=== PATIENT | male | born 1950 | race Hispanic/Latino ===

== ENCOUNTER 2020-12-03 10:56 | Inpatient (IN) | payer MEDICARE, MEDICAID ==
[2020-12-03 11:36] LABS: #Eosinphils 0.2 10x3/uL (0.0-0.5); #Neutrophils 8.8 10x3/uL (1.5-8.4); %Basophils 0.3 % (0.0-2.0); %Eosinophils 1.6 % (0.0-6.0); %Monocytes 9.4 % (0.0-10.0); %Neutrophils 81.2 % (40.0-75.0); Hemoglobin 9.7 g/dL (13.5-17.5); Mean Corpuscular HGB CONC 33.1 g/dL (32.0-36.0); Mean Corpuscular Hemoglobin 31.2 pg (27.0-33.0); Mean Corpuscular Volume 94.2 fl (81.2-95.1); Mean Platelet Volume 9.6 fl (7.4-10.4); Platelet Count 170 10x3/uL (150-450); RBC Distribution Width 13.9 % (11.5-14.5); Red Blood Cell (RBC) Count 3.11 10x6/uL (4.32-5.72); White Blood Cell (WBC) Count 10.9 10x3/uL (3.5-10.5)
[2020-12-03 11:56] LABS: ALT (SGPT) 197 U/L (8-55); AST (SGOT) 508 U/L (5-34); Albumin 2.2 g/dL (3.4-4.8); Alkaline Phosphatase 146 U/L (40-110); Anion Gap 11 mmol/L (10-20); BUN (Urea Nitrogen) 10 mg/dL (8.4-25.7); Bilirubin, Total 2.8 mg/dL (0.2-1.2); Calc. Creatinine Clearance 0 mL/min (70-130); Calcium 7.5 mg/dL (7.8-10.44); Carbon Dioxide 23 mmol/L (23-31); Chloride 98 mmol/L (98-107); Globulin 3.7 g/dL (2.4-3.5); Glucose 124 mg/dL (80-115); Lipase 247 U/L (8-78); Potassium 3.7 mmol/L (3.5-5.1); Protein, Total 5.9 g/dL (5.8-8.1); Sodium 128 mmol/L (136-145)
[2020-12-03 12:06] LABS: CK (CPK) 7514 U/L (30-200)
[2020-12-03] MEDS ORDERED: Thiamine HCl 200 MG/2 ML VIAL ONE (12:09)
[2020-12-03] MEDS ORDERED: Lorazepam 2 MG/ML VIAL ONE (12:10)
[2020-12-03 12:14] LABS: D-Dimer Test 8.6 mg/L FEU (0.19-0.50); INR-International Normal Ratio 1.3; PTT 29.9 sec (22.0-33.0); Prothrombin Time 14.1 sec (9.5-12.1)
[2020-12-03 12:23] LABS: CKMB 66.4 ng/mL (0-6.6)
[2020-12-03] MEDS ORDERED: Senokot S 8.6-50 MG TAB PO PRN (14:48)
[2020-12-03] MEDS ORDERED: Acetaminophen 325 MG TAB PO PRN (14:48)
[2020-12-03] MEDS ORDERED: Ondansetron ODT 4 MG TAB PO PRN (14:48)
[2020-12-03] MEDS ORDERED: cefTRIAXone\\ROCEPHIN 2 GM VIAL ONE (15:03)
[2020-12-03 15:41] LABS: Troponin I 0.053 ng/mL (< 0.028)
[2020-12-03 15:41] LABS: Bilirubin Neg (Negative); Blood, Urine 250 (Negative); Clarity Slightly Cloudy (Clear); Glucose, Urine (Dipstick) Normal (Negative); Ketone, Urine 5 mg/dL (Negative); Leukocyte 25 (Negative); Nitrite Negative (Negative); Protein, Urine (Dipstick) 100 mg/dl (Neg-Trace); pH, Urine 6.5 (5.0-9.0)
[2020-12-03 15:58] LABS: Renal Epithelial 0-3 HPF (None Seen); Squamous Epithelial 0-3 HPF (0-3)
[2020-12-03 15:59] LABS: Bacteria/HPF Rare-Few HPF (None Seen); Mucous/LPF Rare LPF (<2+)
[2020-12-03 18:40] LABS: Troponin I 0.056 ng/mL (< 0.028)
[2020-12-03] MEDS: Sodium Chloride 0.9% 1,000 ML IV SCH ×2 (21:58→21:59)
[2020-12-03] MEDS: Famotidine 20 MG TAB PO SCH (21:59)
[2020-12-04] MEDS: Sodium Chloride 0.9% 1,000 ML IV SCH ×4 (03:25→17:31)
[2020-12-04 04:53] LABS: #Basophils 0.1 10x3/uL (0.0-0.2); #Eosinphils 0.2 10x3/uL (0.0-0.5); #Monocytes 1.1 10x3/uL (0.0-1.1); #Neutrophils 9.2 10x3/uL (1.5-8.4); %Basophils 0.5 % (0.0-2.0); %Eosinophils 1.9 % (0.0-6.0); %Lymphocytes 7.1 % (18.0-47.0); %Monocytes 9.3 % (0.0-10.0); %Neutrophils 80.8 % (40.0-75.0); Hemoglobin 8.4 g/dL (13.5-17.5); Mean Corpuscular HGB CONC 33.5 g/dL (32.0-36.0); Mean Corpuscular Hemoglobin 31.2 pg (27.0-33.0); Mean Corpuscular Volume 93.3 fl (81.2-95.1); Mean Platelet Volume 9.8 fl (7.4-10.4); Platelet Count 164 10x3/uL (150-450); RBC Distribution Width 14.2 % (11.5-14.5); Red Blood Cell (RBC) Count 2.69 10x6/uL (4.32-5.72); White Blood Cell (WBC) Count 11.3 10x3/uL (3.5-10.5)
[2020-12-04 05:16] LABS: ALT (SGPT) 203 U/L (8-55); AST (SGOT) 517 U/L (5-34); Albumin 1.9 g/dL (3.4-4.8); Alkaline Phosphatase 128 U/L (40-110); Anion Gap 13 mmol/L (10-20); BUN (Urea Nitrogen) 13 mg/dL (8.4-25.7); Calc. Creatinine Clearance 79 mL/min (70-130); Calcium 7.2 mg/dL (7.8-10.44); Carbon Dioxide 19 mmol/L (23-31); Chloride 105 mmol/L (98-107); Globulin 3.5 g/dL (2.4-3.5); Glucose 85 mg/dL (80-115); Iron 29 ug/dL (65-175); Iron Binding Capacity, Total 111 mcg/dL (261-462); Lipase 173 U/L (8-78); Magnesium 1.5 mg/dL (1.6-2.6); Potassium 3.6 mmol/L (3.5-5.1); Protein, Total 5.4 g/dL (5.8-8.1); Sodium 133 mmol/L (136-145)
[2020-12-04 05:28] LABS: CK (CPK) 7477 U/L (30-200)
[2020-12-04 05:36] LABS: Ferritin 407.79 ng/mL (22-322)
[2020-12-04] MEDS ORDERED: Magnesium Sulfate 3 GM in Sodium Chloride 0.9% 100 ML IVPB SCH (07:30)
[2020-12-04 08:19] LABS: HBSAg Index 0.13 S/CO (0-0.99); Hep B Surf Ag NonReactive S/CO (NonReactive)
[2020-12-04] MEDS ORDERED: Folic Acid 1 MG TAB PO SCH (09:00)
[2020-12-04] MEDS ORDERED: Thiamine 100 MG TAB PO SCH (09:00)
[2020-12-04] MEDS: Multivitamin W/ Minerals 1 TAB PO SCH ×2 (10:18→10:22)
[2020-12-04] MEDS: Famotidine 20 MG TAB PO SCH ×2 (10:21→20:29)
[2020-12-04 12:05] LABS: HBCM Index 0.08 S/CO (0-0.79); Hep A IgM AB Non-Reactive (NonReactive); Hep A IgM S/CO 0.64 S/CO (0-0.79); Hep C IgG Ab Non-Reactive (NonReactive); Hep C Index 0.34 S/CO (0-0.79); Hepatitis B Core IgM Abs Non-Reactive (NonReactive)
[2020-12-04] MEDS: cefTRIAXone\\ROCEPHIN 2 GM in Sodium Chloride 0.9% 100 ML IVPB SCH (15:12)
[2020-12-04] MEDS: Multivitamins, Adult 10 ML, Folic Acid 1 MG, Thiamine HCl 100 MG in Dextrose 5 %-0.45 %... IV SCH (19:01)
[2020-12-05] MEDS: Sodium Chloride 0.9% 1,000 ML IV SCH ×3 (01:23→17:39)
[2020-12-05 05:12] LABS: ALT (SGPT) 231 U/L (8-55); AST (SGOT) 609 U/L (5-34); Alkaline Phosphatase 141 U/L (40-110); Anion Gap 9 mmol/L (10-20); BUN (Urea Nitrogen) 15 mg/dL (8.4-25.7); Bilirubin, Total 1.7 mg/dL (0.2-1.2); Calc. Creatinine Clearance 70 mL/min (70-130); Calcium 7.3 mg/dL (7.8-10.44); Carbon Dioxide 20 mmol/L (23-31); Chloride 104 mmol/L (98-107); Globulin 3.5 g/dL (2.4-3.5); Glucose 157 mg/dL (80-115); Potassium 3.3 mmol/L (3.5-5.1); Protein, Total 5.5 g/dL (5.8-8.1); Sodium 130 mmol/L (136-145)
[2020-12-05 05:33] LABS: CK (CPK) 9166 U/L (30-200)
[2020-12-05] MEDS ORDERED: Sodium Chloride 0.9% 1,000 ML IV SCH (09:20)
[2020-12-05] MEDS ORDERED: Potassium Chloride 20 MEQ TAB PO SCH (09:30)
[2020-12-05] MEDS: Famotidine 20 MG TAB PO SCH ×2 (10:17→20:28)
[2020-12-05 14:36] LABS: Phosphorus 2.4 mg/dL (2.3-4.7); Potassium 3.7 mmol/L (3.5-5.1)
[2020-12-05] MEDS: cefTRIAXone\\ROCEPHIN 2 GM in Sodium Chloride 0.9% 100 ML IVPB SCH (16:35)
[2020-12-05] MEDS: Multivitamins, Adult 10 ML, Folic Acid 1 MG, Thiamine HCl 100 MG in Dextrose 5 %-0.45 %... IV SCH (19:09)
[2020-12-06] MEDS: Sodium Chloride 0.9% 1,000 ML IV SCH ×3 (01:45→21:49)
[2020-12-06 04:06] LABS: #Basophils 0.1 10x3/uL (0.0-0.2); #Eosinphils 0.3 10x3/uL (0.0-0.5); #Monocytes 1.1 10x3/uL (0.0-1.1); %Basophils 0.5 % (0.0-2.0); %Eosinophils 2.8 % (0.0-6.0); %Lymphocytes 9.7 % (18.0-47.0); %Monocytes 10.1 % (0.0-10.0); %Neutrophils 76.4 % (40.0-75.0); Hemoglobin 8.8 g/dL (13.5-17.5); Mean Corpuscular Hemoglobin 31.7 pg (27.0-33.0); Mean Corpuscular Volume 93.2 fl (81.2-95.1); Mean Platelet Volume 9.7 fl (7.4-10.4); Platelet Count 162 10x3/uL (150-450); RBC Distribution Width 14.3 % (11.5-14.5); Red Blood Cell (RBC) Count 2.78 10x6/uL (4.32-5.72); White Blood Cell (WBC) Count 10.5 10x3/uL (3.5-10.5)
[2020-12-06 04:21] LABS: INR-International Normal Ratio 1.3; Prothrombin Time 13.8 sec (9.5-12.1)
[2020-12-06 04:25] LABS: ALT (SGPT) 276 U/L (8-55); AST (SGOT) 707 U/L (5-34); Albumin 1.8 g/dL (3.4-4.8); Alkaline Phosphatase 134 U/L (40-110); Anion Gap 12 mmol/L (10-20); BUN (Urea Nitrogen) 15 mg/dL (8.4-25.7); Bilirubin, Total 1.5 mg/dL (0.2-1.2); CRP (Inflammatory) 10.08 mg/dL (= or < 0.5); Calc. Creatinine Clearance 73 mL/min (70-130); Calcium 7.2 mg/dL (7.8-10.44); Carbon Dioxide 16 mmol/L (23-31); Chloride 110 mmol/L (98-107); Globulin 3.4 g/dL (2.4-3.5); Glucose 144 mg/dL (80-115); Magnesium 1.9 mg/dL (1.6-2.6); Potassium 3.6 mmol/L (3.5-5.1); Protein, Total 5.2 g/dL (5.8-8.1); Sodium 134 mmol/L (136-145); Uric Acid 2.6 mg/dL (3.5-7.2)
[2020-12-06 05:01] LABS: CK (CPK) 11463 U/L (30-200)
[2020-12-06] MEDS ORDERED: hydrALAZINE 20 MG/ML VIAL SLOW IVP PRN (11:36)
[2020-12-06] MEDS: Famotidine 20 MG TAB PO SCH ×2 (12:54→21:50)
[2020-12-06] MEDS: cefTRIAXone\\ROCEPHIN 2 GM in Sodium Chloride 0.9% 100 ML IVPB SCH (14:15)
[2020-12-06 15:13] LABS: ANA Symphony (Qualitative) Negative (Negative); ANA Symphony (Quantitative) 0.2 Ratio (< 0.7 Negative); EliA Vaculitis New Method **** NEW METHOD ****; Mitochondrial Ab 1.6 U/mL (<4 Negative); dsDNA IgG Antibody 8.3 IU/mL (<10 Negative)
[2020-12-06] MEDS: Multivitamins, Adult 10 ML, Folic Acid 1 MG, Thiamine HCl 100 MG in Dextrose 5 %-0.45 %... IV SCH (20:02)
[2020-12-07] MEDS: Lorazepam 2 MG/ML VIAL SLOW IVP PRN (03:49)
[2020-12-07 05:36] LABS: ALT (SGPT) 346 U/L (8-55); AST (SGOT) 911 U/L (5-34); Albumin 1.8 g/dL (3.4-4.8); Alkaline Phosphatase 131 U/L (40-110); Anion Gap 10 mmol/L (10-20); BUN (Urea Nitrogen) 16 mg/dL (8.4-25.7); Bilirubin, Total 1.8 mg/dL (0.2-1.2); Calc. Creatinine Clearance 91 mL/min (70-130); Calcium 7.2 mg/dL (7.8-10.44); Carbon Dioxide 16 mmol/L (23-31); Chloride 110 mmol/L (98-107); Globulin 3.5 g/dL (2.4-3.5); Glucose 136 mg/dL (80-115); Lipase 170 U/L (8-78); Magnesium 1.7 mg/dL (1.6-2.6); Phosphorus 2.6 mg/dL (2.3-4.7); Potassium 3.3 mmol/L (3.5-5.1); Protein, Total 5.3 g/dL (5.8-8.1); Sodium 133 mmol/L (136-145)
[2020-12-07 06:04] LABS: #Basophils 0.1 10x3/uL (0.0-0.2); #Eosinphils 0.3 10x3/uL (0.0-0.5); #Monocytes 1.1 10x3/uL (0.0-1.1); #Neutrophils 9.5 10x3/uL (1.5-8.4); %Basophils 0.5 % (0.0-2.0); %Eosinophils 2.7 % (0.0-6.0); %Lymphocytes 8.1 % (18.0-47.0); %Monocytes 8.8 % (0.0-10.0); %Neutrophils 79.2 % (40.0-75.0); Hemoglobin 8.8 g/dL (13.5-17.5); Mean Corpuscular HGB CONC 34.5 g/dL (32.0-36.0); Mean Corpuscular Hemoglobin 32.2 pg (27.0-33.0); Mean Corpuscular Volume 93.4 fl (81.2-95.1); Platelet Count 156 10x3/uL (150-450); RBC Distribution Width 14.5 % (11.5-14.5); Red Blood Cell (RBC) Count 2.73 10x6/uL (4.32-5.72)
[2020-12-07] MEDS: Sodium Chloride 0.9% 1,000 ML IV SCH ×3 (07:04→17:07)
[2020-12-07] MEDS: Famotidine 20 MG TAB PO SCH ×2 (08:13→20:33)
[2020-12-07 08:46] LABS: Actual Bicarbonate (HCO3a) 19.1 mEq/L (22-28); Base Excess (BEa) -3.8 mEq/L (-2.0 to +3.0); CO2 Tension 27.1 mmHg (35.0-45.0); Calcium, Ionized (arterial) 1.11 mmol/L (1.12-1.30); Carboxyhemoglobin (COHb) 0.3 gm% (0.0-3.0); Hemoglobin (Hb) 9.3 g/dL (14.0-18.0); O2 Tension (PaO2), arterial 76.9 mmHg (> 80.0); Potassium - ABG Lab 3.4 mmol/L (3.70-5.30); Puncture Site LRA; pH, Arterial 7.47 (7.35-7.45)
[2020-12-07 08:49] LABS: ALV-art Gradient 38.955 mmHg (0-20)
[2020-12-07] MEDS ORDERED: Sodium Chloride 0.9% 1,000 ML IV SCH (09:31)
[2020-12-07] MEDS ORDERED: Furosemide 20 MG/2 ML VIAL SLOW IVP SCH ×2 (09:45→21:00)
[2020-12-07] MEDS ORDERED: Potassium Chloride 20 MEQ TAB PO SCH (10:45)
[2020-12-07] MEDS: Potassium Chloride 20 MEQ in Premix Bag 1 BAG IVPB SCH ×2 (10:55→13:09)
[2020-12-07] MEDS: Morphine 2 MG/ML VIAL SLOW IVP PRN ×3 (10:55→20:14)
[2020-12-07] MEDS ORDERED: Albumin 25% 25 GM/100 ML BOT IVPB SCH ×3 (12:00→18:00)
[2020-12-07] MEDS ORDERED: Spironolactone 25 MG TAB PO SCH (13:00)
[2020-12-07] MEDS: Furosemide 20 MG/2 ML VIAL SLOW IVP SCH ×2 (14:24→20:09)
[2020-12-07] MEDS: cefTRIAXone\\ROCEPHIN 2 GM in Sodium Chloride 0.9% 100 ML IVPB SCH (14:24)
[2020-12-07 16:49] LABS: Anion Gap 14 mmol/L (10-20); BUN (Urea Nitrogen) 17 mg/dL (8.4-25.7); Calc. Creatinine Clearance 89 mL/min (70-130); Calcium 7.4 mg/dL (7.8-10.44); Carbon Dioxide 16 mmol/L (23-31); Chloride 112 mmol/L (98-107); Glucose 103 mg/dL (80-115); Potassium 3.9 mmol/L (3.5-5.1); Sodium 138 mmol/L (136-145)
[2020-12-07 17:14] LABS: CK (CPK) 16815 U/L (30-200)
[2020-12-07] MEDS: Albumin 25% 25 GM/100 ML BOT IVPB SCH (17:20)
[2020-12-07] MEDS: Lactated Ringer's 1,000 ML IV SCH (20:25)
[2020-12-07] MEDS ORDERED: Piperacillin/Tazobactam 2.25 GM VIAL ONE (20:50)
[2020-12-07] MEDS ORDERED: Piperacillin/Tazobactam 4.5 GM in Sodium Chloride 0.9% 100 ML IVPB SCH (21:00)
[2020-12-07] MEDS: Piperacillin/Tazobactam 2.25 GM in Sodium Chloride 0.9% 100 ML IVPB SCH ×2 (21:28→22:10)
[2020-12-07] MEDS: Azithromycin 500 MG in Sodium Chloride 0.9% 250 ML 250 ML IVPB SCH (22:55)
[2020-12-07 23:39] LABS: Legionella Urinary Ag Negative (Negative); Strep pneumo Urine Ag NEGATIVE (NEGATIVE)
[2020-12-08] MEDS: Albumin 25% 25 GM/100 ML BOT IVPB SCH ×4 (00:04→23:59)
[2020-12-08] MEDS ORDERED: Piperacillin/Tazobactam 2.25 GM VIAL ONE (02:51)
[2020-12-08] MEDS: Piperacillin/Tazobactam 2.25 GM in Sodium Chloride 0.9% 100 ML IVPB SCH ×2 (03:00→03:06)
[2020-12-08] MEDS: Lactated Ringer's 1,000 ML IV SCH ×3 (03:30→19:48)
[2020-12-08 04:37] LABS: ALT (SGPT) 302 U/L (8-55); AST (SGOT) 738 U/L (5-34); Albumin 2.7 g/dL (3.4-4.8); Alkaline Phosphatase 110 U/L (40-110); Anion Gap 14 mmol/L (10-20); BUN (Urea Nitrogen) 20 mg/dL (8.4-25.7); Bilirubin, Total 2.5 mg/dL (0.2-1.2); Calc. Creatinine Clearance 79 mL/min (70-130); Calcium 7.7 mg/dL (7.8-10.44); Carbon Dioxide 17 mmol/L (23-31); Chloride 112 mmol/L (98-107); Globulin 2.7 g/dL (2.4-3.5); Glucose 85 mg/dL (80-115); Magnesium 1.6 mg/dL (1.6-2.6); Potassium 3.8 mmol/L (3.5-5.1); Protein, Total 5.4 g/dL (5.8-8.1); Sodium 139 mmol/L (136-145)
[2020-12-08 04:47] LABS: Phosphorus 3.4 mg/dL (2.3-4.7)
[2020-12-08 05:06] LABS: CK (CPK) 15499 U/L (30-200)
[2020-12-08] MEDS ORDERED: Spironolactone 25 MG TAB PO SCH (08:00)
[2020-12-08] MEDS: Piperacillin/Tazobactam 3.375 GM in Sodium Chloride 0.9% 100 ML IVPB SCH ×2 (08:36→16:14)
[2020-12-08] MEDS: Furosemide 20 MG/2 ML VIAL SLOW IVP SCH ×3 (08:36→19:48)
[2020-12-08] MEDS: Famotidine/PF 20 mg/2ml Vial SLOW IVP SCH ×2 (08:37→19:48)
[2020-12-08] MEDS: Lorazepam 2 MG/ML VIAL SLOW IVP PRN ×3 (08:50→20:03)
[2020-12-08] MEDS ORDERED: Famotidine/PF 20 mg/2ml Vial IVPB SCH (09:00)
[2020-12-08] MEDS ORDERED: Multivitamins, Adult 10 ML, Folic Acid 1 MG, Thiamine HCl 100 MG in Dextrose 5 %-0.45 %... IV SCH (09:00)
[2020-12-08] MEDS ORDERED: Enoxaparin Sodium 40 MG/0.4 ML SYRINGE SC SCH (10:00)
[2020-12-08] MEDS ORDERED: Sodium Bicarbonate 150 MEQ in Dextrose 5% in Water 1,000 ML IV SCH (16:00)
[2020-12-08 16:23] LABS: ALT (SGPT) 364 U/L (8-55); AST (SGOT) 836 U/L (5-34); Albumin 2.6 g/dL (3.4-4.8); Alkaline Phosphatase 97 U/L (40-110); Anion Gap 12 mmol/L (10-20); BUN (Urea Nitrogen) 20 mg/dL (8.4-25.7); Bilirubin, Total 2.4 mg/dL (0.2-1.2); Calc. Creatinine Clearance 78 mL/min (70-130); Calcium 7.7 mg/dL (7.8-10.44); Carbon Dioxide 19 mmol/L (23-31); Chloride 110 mmol/L (98-107); Globulin 2.6 g/dL (2.4-3.5); Glucose 140 mg/dL (80-115); Protein, Total 5.2 g/dL (5.8-8.1); Sodium 138 mmol/L (136-145)
[2020-12-08] MEDS ORDERED: Magnesium 2 GM/50 ML 2 GM in Premix Bag 1 BAG IVPB SCH (17:30)
[2020-12-08 17:47] LABS: Phosphorus 2.5 mg/dL (2.3-4.7)
[2020-12-08] MEDS: Sodium Bicarbonate 75 MEQ in Dextrose 5% in Water 500 ML IV SCH (18:02)
[2020-12-08] MEDS: Potassium Chloride 20 MEQ in Premix Bag 1 BAG IVPB SCH ×3 (19:48→23:59)
[2020-12-08] MEDS: Azithromycin 500 MG in Sodium Chloride 0.9% 250 ML 250 ML IVPB SCH (21:36)
[2020-12-09] MEDS: Piperacillin/Tazobactam 3.375 GM in Sodium Chloride 0.9% 100 ML IVPB SCH ×3 (01:41→15:03)
[2020-12-09] MEDS: Potassium Chloride 20 MEQ in Premix Bag 1 BAG IVPB SCH ×7 (03:43→22:35)
[2020-12-09 04:41] LABS: ALT (SGPT) 369 U/L (8-55); AST (SGOT) 764 U/L (5-34); Albumin 2.9 g/dL (3.4-4.8); Alkaline Phosphatase 102 U/L (40-110); Anion Gap 11 mmol/L (10-20); BUN (Urea Nitrogen) 18 mg/dL (8.4-25.7); Bilirubin, Total 2.4 mg/dL (0.2-1.2); Calc. Creatinine Clearance 81 mL/min (70-130); Calcium 7.9 mg/dL (7.8-10.44); Carbon Dioxide 23 mmol/L (23-31); Chloride 107 mmol/L (98-107); Globulin 2.4 g/dL (2.4-3.5); Glucose 135 mg/dL (80-115); Potassium 3.2 mmol/L (3.5-5.1); Protein, Total 5.3 g/dL (5.8-8.1); Sodium 138 mmol/L (136-145)
[2020-12-09] MEDS: Lactated Ringer's 1,000 ML IV SCH ×2 (04:52→13:14)
[2020-12-09] MEDS: Albumin 25% 25 GM/100 ML BOT IVPB SCH (04:52)
[2020-12-09] MEDS: Lorazepam 2 MG/ML VIAL SLOW IVP PRN ×2 (04:53→10:12)
[2020-12-09 04:54] LABS: CK (CPK) 12881 U/L (30-200)
[2020-12-09] MEDS ORDERED: Potassium Phosphate 30 MMOL in Sodium Chloride 0.9% 250 ML 250 ML IVPB SCH ×2 (05:30→07:30)
[2020-12-09] MEDS ORDERED: Potassium Chloride 40 MEQ in Premix Bag 1 BAG IVPB SCH (05:30)
[2020-12-09] MEDS: Famotidine/PF 20 mg/2ml Vial SLOW IVP SCH ×2 (08:31→20:39)
[2020-12-09] MEDS: Enoxaparin Sodium 40 MG/0.4 ML SYRINGE SC SCH (08:31)
[2020-12-09] MEDS: Furosemide 20 MG/2 ML VIAL SLOW IVP SCH ×3 (08:32→20:30)
[2020-12-09] MEDS: Sodium Bicarbonate 75 MEQ in Dextrose 5% in Water 500 ML IV SCH (08:50)
[2020-12-09] MEDS ORDERED: Multivitamins, Adult 10 ML, Folic Acid 1 MG, Thiamine HCl 100 MG in Dextrose 5 %-0.45 %... IV SCH (09:00)
[2020-12-09 10:25] LABS: ALV-art Gradient 94.905 mmHg (0-20); Actual Bicarbonate (HCO3a) 17.5 mEq/L (22-28); Base Excess (BEa) -6.2 mEq/L (-2.0 to +3.0); CO2 Tension 28.3 mmHg (35.0-45.0); Calcium, Ionized (arterial) 1.12 mmol/L (1.12-1.30); Carboxyhemoglobin (COHb) 0.3 gm% (0.0-3.0); Hemoglobin (Hb) 8.7 g/dL (14.0-18.0); O2 Tension (PaO2), arterial 126.4 mmHg (> 80.0); Potassium - ABG Lab 3.7 mmol/L (3.70-5.30); pH, Arterial 7.41 (7.35-7.45)
[2020-12-09] MEDS ORDERED: Thiamine HCl 200 MG/2 ML VIAL SLOW IVP SCH (11:30)
[2020-12-09] MEDS ORDERED: Sodium Bicarbonate 150 MEQ, Admixture Fee 1 EACH in Dextrose 5% in Water 1,000 ML IV SCH ×2 (13:30→14:00)
[2020-12-09] MEDS: Azithromycin 500 MG in Sodium Chloride 0.9% 250 ML 250 ML IVPB SCH (22:32)
[2020-12-10] MEDS: Piperacillin/Tazobactam 3.375 GM in Sodium Chloride 0.9% 100 ML IVPB SCH ×3 (00:29→16:40)
[2020-12-10 04:43] LABS: ALT (SGPT) 365 U/L (8-55); AST (SGOT) 657 U/L (5-34); Albumin 2.5 g/dL (3.4-4.8); Alkaline Phosphatase 133 U/L (40-110); Anion Gap 12 mmol/L (10-20); BUN (Urea Nitrogen) 18 mg/dL (8.4-25.7); Calc. Creatinine Clearance 83 mL/min (70-130); Calcium 7.3 mg/dL (7.8-10.44); Carbon Dioxide 29 mmol/L (23-31); Chloride 103 mmol/L (98-107); Globulin 2.5 g/dL (2.4-3.5); Glucose 154 mg/dL (80-115); Potassium 4.3 mmol/L (3.5-5.1); Sodium 140 mmol/L (136-145)
[2020-12-10] MEDS: Lactated Ringer's 1,000 ML IV SCH ×3 (04:57→19:31)
[2020-12-10 05:04] LABS: CK (CPK) 8180 U/L (30-200)
[2020-12-10] MEDS ORDERED: Metolazone 5 MG TAB PER TUBE SCH (07:30)
[2020-12-10] MEDS ORDERED: Spironolactone 25 MG TAB PO SCH (07:30)
[2020-12-10] MEDS ORDERED: Metolazone 2.5 MG TAB PER TUBE SCH (08:15)
[2020-12-10] MEDS ORDERED: Furosemide 40 MG/4 ML VIAL SLOW IVP SCH (08:15)
[2020-12-10] MEDS: Lorazepam 2 MG/ML VIAL SLOW IVP PRN (08:26)
[2020-12-10] MEDS: Albumin 25% 25 GM/100 ML BOT IVPB SCH ×3 (08:36→19:30)
[2020-12-10] MEDS: Enoxaparin Sodium 40 MG/0.4 ML SYRINGE SC SCH (08:44)
[2020-12-10] MEDS: Dextrose 5 %-0.45 % NaCl 1,000 ML ONE ×2 (08:44→08:48)
[2020-12-10] MEDS: Famotidine/PF 20 mg/2ml Vial SLOW IVP SCH ×2 (08:44→19:30)
[2020-12-10] MEDS ORDERED: Multivitamins, Adult 10 ML, Folic Acid 1 MG in Dextrose 5 %-0.45 % NaCl 1,000 ML IV SCH (09:00)
[2020-12-10] MEDS: Morphine 2 MG/ML VIAL SLOW IVP PRN ×3 (10:14→19:44)
[2020-12-10] MEDS ORDERED: chlordiazePOXIDE HCl 25 MG CAP PO SCH (10:30)
[2020-12-10] MEDS ORDERED: Sodium Chloride 0.9% 50 ML ONE (12:32)
[2020-12-10] MEDS: Furosemide 40 MG/4 ML VIAL SLOW IVP SCH ×2 (15:01→21:45)
[2020-12-10] MEDS: chlordiazePOXIDE HCl 25 MG CAP PO SCH ×2 (15:02→19:30)
[2020-12-10] MEDS: Azithromycin 500 MG in Sodium Chloride 0.9% 250 ML 250 ML IVPB SCH (21:46)
[2020-12-11] MEDS: Piperacillin/Tazobactam 3.375 GM in Sodium Chloride 0.9% 100 ML IVPB SCH ×3 (00:18→16:12)
[2020-12-11] MEDS: Morphine 2 MG/ML VIAL SLOW IVP PRN (00:19)
[2020-12-11] MEDS: Albumin 25% 25 GM/100 ML BOT IVPB SCH ×2 (02:36→23:07)
[2020-12-11] MEDS: Lactated Ringer's 1,000 ML IV SCH (04:03)
[2020-12-11] MEDS: Furosemide 40 MG/4 ML VIAL SLOW IVP SCH ×3 (05:02→21:43)
[2020-12-11 07:56] LABS: Hemoglobin 8.2 g/dL (13.5-17.5); Mean Corpuscular HGB CONC 33.6 g/dL (32.0-36.0); Mean Corpuscular Hemoglobin 31.9 pg (27.0-33.0); Mean Corpuscular Volume 94.9 fl (81.2-95.1); Mean Platelet Volume 10.1 fl (7.4-10.4); Platelet Count 132 10x3/uL (150-450); RBC Distribution Width 14.8 % (11.5-14.5); Red Blood Cell (RBC) Count 2.57 10x6/uL (4.32-5.72); White Blood Cell (WBC) Count 11.2 10x3/uL (3.5-10.5)
[2020-12-11 07:57] LABS: ALT (SGPT) 264 U/L (8-55); AST (SGOT) 409 U/L (5-34); Albumin 2.9 g/dL (3.4-4.8); Alkaline Phosphatase 102 U/L (40-110); Anion Gap 15 mmol/L (10-20); BUN (Urea Nitrogen) 21 mg/dL (8.4-25.7); Bilirubin, Total 2.3 mg/dL (0.2-1.2); Calc. Creatinine Clearance 83 mL/min (70-130); Calcium 7.8 mg/dL (7.8-10.44); Carbon Dioxide 31 mmol/L (23-31); Chloride 103 mmol/L (98-107); Glucose 124 mg/dL (80-115); Potassium 3.6 mmol/L (3.5-5.1); Protein, Total 4.9 g/dL (5.8-8.1); Sodium 145 mmol/L (136-145)
[2020-12-11 08:08] LABS: CK (CPK) 4889 U/L (30-200)
[2020-12-11] MEDS: chlordiazePOXIDE HCl 25 MG CAP PO SCH ×3 (08:18→21:43)
[2020-12-11] MEDS: Enoxaparin Sodium 40 MG/0.4 ML SYRINGE SC SCH (08:18)
[2020-12-11] MEDS: Famotidine/PF 20 mg/2ml Vial SLOW IVP SCH ×2 (08:18→21:43)
[2020-12-11] MEDS: Spironolactone 25 MG TAB PO SCH (10:02)
[2020-12-11 18:13] LABS: ALT (SGPT) 285 U/L (8-55); AST (SGOT) 420 U/L (5-34); Albumin 2.8 g/dL (3.4-4.8); Alkaline Phosphatase 107 U/L (40-110); Anion Gap 14 mmol/L (10-20); BUN (Urea Nitrogen) 20 mg/dL (8.4-25.7); Bilirubin, Total 2.6 mg/dL (0.2-1.2); Calc. Creatinine Clearance 84 mL/min (70-130); Calcium 7.8 mg/dL (7.8-10.44); Carbon Dioxide 31 mmol/L (23-31); Chloride 102 mmol/L (98-107); Globulin 2.3 g/dL (2.4-3.5); Glucose 116 mg/dL (80-115); Potassium 3.3 mmol/L (3.5-5.1); Protein, Total 5.1 g/dL (5.8-8.1); Sodium 144 mmol/L (136-145)
[2020-12-11 18:24] LABS: CK (CPK) 4918 U/L (30-200)
[2020-12-11] MEDS: Azithromycin 500 MG in Sodium Chloride 0.9% 250 ML 250 ML IVPB SCH (21:44)
[2020-12-12] MEDS: Piperacillin/Tazobactam 3.375 GM in Sodium Chloride 0.9% 100 ML IVPB SCH ×3 (00:24→16:42)
[2020-12-12 03:41] LABS: Hemoglobin 8.5 g/dL (13.5-17.5); Mean Corpuscular HGB CONC 33.5 g/dL (32.0-36.0); Mean Corpuscular Hemoglobin 31.6 pg (27.0-33.0); Mean Corpuscular Volume 94.4 fl (81.2-95.1); Mean Platelet Volume 10.5 fl (7.4-10.4); Platelet Count 131 10x3/uL (150-450); RBC Distribution Width 15.1 % (11.5-14.5); Red Blood Cell (RBC) Count 2.69 10x6/uL (4.32-5.72)
[2020-12-12 03:55] LABS: ALT (SGPT) 265 U/L (8-55); AST (SGOT) 372 U/L (5-34); Albumin 2.9 g/dL (3.4-4.8); Alkaline Phosphatase 102 U/L (40-110); Anion Gap 14 mmol/L (10-20); BUN (Urea Nitrogen) 22 mg/dL (8.4-25.7); Bilirubin, Total 2.5 mg/dL (0.2-1.2); CK (CPK) 3896 U/L (30-200); Calc. Creatinine Clearance 79 mL/min (70-130); Calcium 8.1 mg/dL (7.8-10.44); Carbon Dioxide 32 mmol/L (23-31); Chloride 102 mmol/L (98-107); Globulin 2.2 g/dL (2.4-3.5); Glucose 169 mg/dL (80-115); Protein, Total 5.1 g/dL (5.8-8.1); Sodium 145 mmol/L (136-145)
[2020-12-12] MEDS: Albumin 25% 25 GM/100 ML BOT IVPB SCH ×3 (05:12→18:21)
[2020-12-12] MEDS: Furosemide 40 MG/4 ML VIAL SLOW IVP SCH ×3 (06:00→21:29)
[2020-12-12] MEDS: Enoxaparin Sodium 40 MG/0.4 ML SYRINGE SC SCH (07:55)
[2020-12-12] MEDS: Famotidine/PF 20 mg/2ml Vial SLOW IVP SCH ×2 (07:55→21:29)
[2020-12-12] MEDS: chlordiazePOXIDE HCl 25 MG CAP PO SCH (07:56)
[2020-12-12] MEDS: Potassium Chloride 20 MEQ TAB PO SCH ×2 (07:56→13:39)
[2020-12-12] MEDS: Spironolactone 25 MG TAB PO SCH (09:10)
[2020-12-12] MEDS ORDERED: chlordiazePOXIDE HCl 25 MG CAP PO PRN (10:07)
[2020-12-12 10:33] LABS: Phosphorus 1.4 mg/dL (2.3-4.7)
[2020-12-12] MEDS: Lactated Ringer's 1,000 ML IV SCH ×2 (14:07→21:29)
[2020-12-12] MEDS ORDERED: Magnesium 2 GM/50 ML 2 GM in Premix Bag 1 BAG IVPB SCH (16:30)
[2020-12-12] MEDS: Azithromycin 500 MG in Sodium Chloride 0.9% 250 ML 250 ML IVPB SCH (21:30)
[2020-12-13] MEDS: Piperacillin/Tazobactam 3.375 GM in Sodium Chloride 0.9% 100 ML IVPB SCH ×3 (00:07→16:17)
[2020-12-13] MEDS: Lactated Ringer's 1,000 ML IV SCH (04:07)
[2020-12-13] MEDS: Acetaminophen 650 MG Suppository PR PRN (04:42)
[2020-12-13 05:44] LABS: Anion Gap 18 mmol/L (10-20); Globulin 2.6 g/dL (2.4-3.5)
[2020-12-13] MEDS ORDERED: Magnesium 2 GM/50 ML 2 GM in Premix Bag 1 BAG IVPB SCH ×3 (05:45→18:00)
[2020-12-13] MEDS: Furosemide 40 MG/4 ML VIAL SLOW IVP SCH (05:51)
[2020-12-13 05:52] LABS: ALT (SGPT) 192 U/L (8-55); AST (SGOT) 224 U/L (5-34); Alkaline Phosphatase 102 U/L (40-110); BUN (Urea Nitrogen) 27 mg/dL (8.4-25.7); CK (CPK) 1598 U/L (30-200); Calc. Creatinine Clearance 62 mL/min (70-130); Calcium 8.3 mg/dL (7.8-10.44); Carbon Dioxide 29 mmol/L (23-31); Chloride 105 mmol/L (98-107); Glucose 156 mg/dL (80-115); Potassium 4.6 mmol/L (3.5-5.1); Protein, Total 5.6 g/dL (5.8-8.1); Sodium 147 mmol/L (136-145)
[2020-12-13 06:08] LABS: Mean Corpuscular HGB CONC 33.5 g/dL (32.0-36.0); Mean Corpuscular Hemoglobin 31.7 pg (27.0-33.0); Mean Corpuscular Volume 94.8 fl (81.2-95.1); Mean Platelet Volume 10.4 fl (7.4-10.4); Platelet Count 127 10x3/uL (150-450); RBC Distribution Width 15.3 % (11.5-14.5); Red Blood Cell (RBC) Count 2.52 10x6/uL (4.32-5.72); White Blood Cell (WBC) Count 10.2 10x3/uL (3.5-10.5)
[2020-12-13] MEDS ORDERED: Potassium Phosphate 30 MMOL in Sodium Chloride 0.9% 250 ML 250 ML IVPB SCH ×2 (06:30→20:00)
[2020-12-13 06:31] LABS: Phosphorus 1.2 mg/dL (2.3-4.7)
[2020-12-13] MEDS: Sodium Chloride 0.45% 1,000 ML IV SCH ×2 (09:23→12:48)
[2020-12-13] MEDS: Enoxaparin Sodium 40 MG/0.4 ML SYRINGE SC SCH (09:33)
[2020-12-13] MEDS: Famotidine/PF 20 mg/2ml Vial SLOW IVP SCH ×2 (09:34→22:01)
[2020-12-13 16:24] LABS: Anion Gap 12 mmol/L (10-20)
[2020-12-13 16:39] LABS: Albumin 2.9 g/dL (3.4-4.8); BUN (Urea Nitrogen) 25 mg/dL (8.4-25.7); BUN/Creatinine Ratio 24.51; CK (CPK) 1405 U/L (30-200); Calc. Creatinine Clearance 73 mL/min (70-130); Calcium 8.3 mg/dL (7.8-10.44); Carbon Dioxide 34 mmol/L (23-31); Chloride 105 mmol/L (98-107); Glucose 150 mg/dL (80-115); Phosphorus 1.5 mg/dL (2.3-4.7); Sodium 148 mmol/L (136-145)
[2020-12-13] MEDS ORDERED: Sodium Chloride 0.9% 250 ML 250 ML ONE (22:04)
[2020-12-14] MEDS: Sodium Chloride 0.45% 1,000 ML IV SCH ×2 (00:20→08:53)
[2020-12-14] MEDS: Piperacillin/Tazobactam 3.375 GM in Sodium Chloride 0.9% 100 ML IVPB SCH ×4 (05:28→23:49)
[2020-12-14 05:35] LABS: Hemoglobin 8.1 g/dL (13.5-17.5); Mean Corpuscular HGB CONC 33.3 g/dL (32.0-36.0); Mean Corpuscular Volume 93.1 fl (81.2-95.1); Mean Platelet Volume 10.5 fl (7.4-10.4); Platelet Count 131 10x3/uL (150-450); RBC Distribution Width 15.7 % (11.5-14.5); Red Blood Cell (RBC) Count 2.61 10x6/uL (4.32-5.72); White Blood Cell (WBC) Count 11.9 10x3/uL (3.5-10.5)
[2020-12-14 05:51] LABS: ALT (SGPT) 168 U/L (8-55); AST (SGOT) 162 U/L (5-34); Albumin 2.8 g/dL (3.4-4.8); Alkaline Phosphatase 107 U/L (40-110); Anion Gap 14 mmol/L (10-20); BUN (Urea Nitrogen) 24 mg/dL (8.4-25.7); Bilirubin, Total 2.2 mg/dL (0.2-1.2); CK (CPK) 1174 U/L (30-200); Calc. Creatinine Clearance 77 mL/min (70-130); Calcium 8.1 mg/dL (7.8-10.44); Carbon Dioxide 32 mmol/L (23-31); Chloride 108 mmol/L (98-107); Globulin 2.5 g/dL (2.4-3.5); Glucose 142 mg/dL (80-115); Potassium 3.7 mmol/L (3.5-5.1); Protein, Total 5.3 g/dL (5.8-8.1); Sodium 150 mmol/L (136-145)
[2020-12-14 05:57] LABS: Phosphorus 3.8 mg/dL (2.3-4.7)
[2020-12-14] MEDS: Enoxaparin Sodium 40 MG/0.4 ML SYRINGE SC SCH (09:00)
[2020-12-14] MEDS: Spironolactone 25 MG TAB PO SCH (09:00)
[2020-12-14] MEDS: Famotidine/PF 20 mg/2ml Vial SLOW IVP SCH ×2 (09:01→21:30)
[2020-12-14 09:42] LABS: Base Excess (BEa) 7.9 mEq/L (-2.0 to +3.0); CO2 Tension 37.4 mmHg (35.0-45.0); Calcium, Ionized (arterial) 1.09 mmol/L (1.12-1.30); Carboxyhemoglobin (COHb) 0.5 gm% (0.0-3.0); Hemoglobin (Hb) 8.7 g/dL (14.0-18.0); O2 Tension (PaO2), arterial 62.7 mmHg (> 80.0); Potassium - ABG Lab 3.4 mmol/L (3.70-5.30); Puncture Site LBA; pH, Arterial 7.54 (7.35-7.45)
[2020-12-14] MEDS: Dextrose 5% in Water 1,000 ML IV SCH ×2 (10:53→16:52)
[2020-12-14 11:59] LABS: Bilirubin Neg (Negative); Blood, Urine 250 (Negative); Clarity Clear (Clear); Glucose, Urine (Dipstick) Normal (Negative); Ketone, Urine Negative (Negative); Leukocyte 25 (Negative); Nitrite Negative (Negative); Protein, Urine (Dipstick) 100 mg/dl (Neg-Trace); Urobilinogen Normal mg/dL (Less than 2)
[2020-12-14 12:14] LABS: Squamous Epithelial 0-3 HPF (0-3)
[2020-12-14 12:17] LABS: Mucous/LPF Rare LPF (<2+)
[2020-12-14 12:21] LABS: Bacteria/HPF Rare-Few HPF (None Seen)
[2020-12-14] MEDS: VANCOMYCIN 1.25 GM/250 ML BAG 1.25 GM in Premix Bag 1 BAG IVPB SCH (13:55)
[2020-12-14] MEDS ORDERED: chlordiazePOXIDE HCl 5 MG CAP PO PRN (13:56)
[2020-12-14 15:32] LABS: Anion Gap 12 mmol/L (10-20); BUN (Urea Nitrogen) 26 mg/dL (8.4-25.7); Calc. Creatinine Clearance 77 mL/min (70-130); Calcium 7.8 mg/dL (7.8-10.44); Carbon Dioxide 33 mmol/L (23-31); Chloride 107 mmol/L (98-107); Glucose 144 mg/dL (80-115); Potassium 3.2 mmol/L (3.5-5.1); Sodium 149 mmol/L (136-145)
[2020-12-14] MEDS ORDERED: Vancomycin HCl 1.25 GM in Sodium Chloride 0.9% 250 ML 300 ML IVPB SCH (21:00)
[2020-12-15] MEDS: Acetaminophen 650 MG Suppository PR PRN (02:26)
[2020-12-15] MEDS: VANCOMYCIN 1.25 GM/250 ML BAG 1.25 GM in Premix Bag 1 BAG IVPB SCH ×2 (02:26→14:56)
[2020-12-15 04:44] LABS: Mean Corpuscular HGB CONC 32.8 g/dL (32.0-36.0); Mean Corpuscular Volume 94.6 fl (81.2-95.1); Mean Platelet Volume 11.1 fl (7.4-10.4); Platelet Count 132 10x3/uL (150-450); RBC Distribution Width 16.3 % (11.5-14.5); Red Blood Cell (RBC) Count 2.58 10x6/uL (4.32-5.72)
[2020-12-15 05:11] LABS: ALT (SGPT) 141 U/L (8-55); AST (SGOT) 128 U/L (5-34); Albumin 2.5 g/dL (3.4-4.8); Alkaline Phosphatase 98 U/L (40-110); Anion Gap 13 mmol/L (10-20); BUN (Urea Nitrogen) 26 mg/dL (8.4-25.7); Bilirubin, Total 2.3 mg/dL (0.2-1.2); CK (CPK) 924 U/L (30-200); Calc. Creatinine Clearance 86 mL/min (70-130); Calcium 7.8 mg/dL (7.8-10.44); Carbon Dioxide 30 mmol/L (23-31); Chloride 108 mmol/L (98-107); Globulin 2.6 g/dL (2.4-3.5); Glucose 117 mg/dL (80-115); Potassium 3.3 mmol/L (3.5-5.1); Protein, Total 5.1 g/dL (5.8-8.1); Sodium 148 mmol/L (136-145)
[2020-12-15] MEDS: Dextrose 5% in Water 1,000 ML IV SCH ×3 (06:21→18:17)
[2020-12-15] MEDS: acetaZOLAMIDE Sodium 500 MG in Sodium Chloride 0.9% 50 ML IVPB SCH (09:03)
[2020-12-15] MEDS: Piperacillin/Tazobactam 3.375 GM in Sodium Chloride 0.9% 100 ML IVPB SCH ×2 (10:13→17:22)
[2020-12-15] MEDS: Spironolactone 25 MG TAB PO SCH (10:14)
[2020-12-15] MEDS: Enoxaparin Sodium 40 MG/0.4 ML SYRINGE SC SCH (10:14)
[2020-12-15] MEDS: Famotidine/PF 20 mg/2ml Vial SLOW IVP SCH ×2 (10:14→20:44)
[2020-12-15] MEDS ORDERED: Furosemide 40 MG/4 ML VIAL SLOW IVP SCH (16:15)
[2020-12-15] MEDS ORDERED: Potassium Chloride 20 MEQ TAB PO SCH (16:30)
[2020-12-15] MEDS ORDERED: Potassium Bicarbonate/Cit Ac 20 MEQ TAB PO SCH (17:00)
[2020-12-16] MEDS: Piperacillin/Tazobactam 3.375 GM in Sodium Chloride 0.9% 100 ML IVPB SCH ×2 (00:51→08:46)
[2020-12-16] MEDS: VANCOMYCIN 1.25 GM/250 ML BAG 1.25 GM in Premix Bag 1 BAG IVPB SCH ×2 (00:52→12:48)
[2020-12-16 05:59] LABS: Hemoglobin 8.1 g/dL (13.5-17.5); Mean Corpuscular HGB CONC 32.8 g/dL (32.0-36.0); Mean Corpuscular Hemoglobin 31.4 pg (27.0-33.0); Mean Corpuscular Volume 95.7 fl (81.2-95.1); Mean Platelet Volume 11.6 fl (7.4-10.4); Platelet Count 134 10x3/uL (150-450); RBC Distribution Width 16.4 % (11.5-14.5); Red Blood Cell (RBC) Count 2.58 10x6/uL (4.32-5.72); White Blood Cell (WBC) Count 16.1 10x3/uL (3.5-10.5)
[2020-12-16 06:12] LABS: ALT (SGPT) 123 U/L (8-55); AST (SGOT) 97 U/L (5-34); Albumin 2.4 g/dL (3.4-4.8); Alkaline Phosphatase 113 U/L (40-110); Anion Gap 12 mmol/L (10-20); BUN (Urea Nitrogen) 24 mg/dL (8.4-25.7); Bilirubin, Total 2.1 mg/dL (0.2-1.2); CK (CPK) 447 U/L (30-200); Calc. Creatinine Clearance 84 mL/min (70-130); Calcium 7.7 mg/dL (7.8-10.44); Carbon Dioxide 25 mmol/L (23-31); Chloride 109 mmol/L (98-107); Glucose 136 mg/dL (80-115); Potassium 3.4 mmol/L (3.5-5.1); Protein, Total 5.4 g/dL (5.8-8.1); Sodium 143 mmol/L (136-145)
[2020-12-16] MEDS: Dextrose 5% in Water 1,000 ML IV SCH ×2 (06:42→08:48)
[2020-12-16] MEDS: Famotidine/PF 20 mg/2ml Vial SLOW IVP SCH ×2 (08:46→20:18)
[2020-12-16] MEDS: Spironolactone 25 MG TAB PO SCH (08:47)
[2020-12-16] MEDS: Enoxaparin Sodium 40 MG/0.4 ML SYRINGE SC SCH (08:47)
[2020-12-16] MEDS: acetaZOLAMIDE Sodium 500 MG in Sodium Chloride 0.9% 50 ML IVPB SCH (11:26)
[2020-12-16 12:29] LABS: Vancomycin, Trough 32.4 ug/mL
[2020-12-16] MEDS ORDERED: Furosemide 40 MG/4 ML VIAL SLOW IVP SCH (14:00)
[2020-12-16] MEDS: Ampicillin/Sulbactam 1.5 GM in Sodium Chloride 0.9% 100 ML IVPB SCH ×2 (15:02→22:31)
[2020-12-16] MEDS: Vancomycin HCl 1 GM in Sodium Chloride 0.9% 250 ML 250 ML IVPB SCH (20:18)
[2020-12-17] MEDS: Acetaminophen 650 MG Suppository PR PRN (04:36)
[2020-12-17 04:59] LABS: Anion Gap 14 mmol/L (10-20); BUN (Urea Nitrogen) 26 mg/dL (8.4-25.7); Calc. Creatinine Clearance 79 mL/min (70-130); Calcium 7.9 mg/dL (7.8-10.44); Carbon Dioxide 19 mmol/L (23-31); Chloride 114 mmol/L (98-107); Glucose 122 mg/dL (80-115); Potassium 4.3 mmol/L (3.5-5.1); Sodium 143 mmol/L (136-145)
[2020-12-17] MEDS: Ampicillin/Sulbactam 1.5 GM in Sodium Chloride 0.9% 100 ML IVPB SCH ×2 (06:11→13:06)
[2020-12-17 07:37] LABS: #Basophils 0.1 10x3/uL (0.0-0.2); #Eosinphils 0.8 10x3/uL (0.0-0.5); #Monocytes 1.4 10x3/uL (0.0-1.1); #Neutrophils 11.9 10x3/uL (1.5-8.4); %Basophils 0.4 % (0.0-2.0); %Eosinophils 5.1 % (0.0-6.0); %Lymphocytes 12.6 % (18.0-47.0); %Monocytes 8.6 % (0.0-10.0); %Neutrophils 72.7 % (40.0-75.0); Hemoglobin 7.9 g/dL (13.5-17.5); Mean Corpuscular HGB CONC 33.2 g/dL (32.0-36.0); Mean Corpuscular Hemoglobin 32.2 pg (27.0-33.0); Mean Corpuscular Volume 97.1 fl (81.2-95.1); Mean Platelet Volume 11.9 fl (7.4-10.4); Platelet Count 146 10x3/uL (150-450); RBC Distribution Width 16.5 % (11.5-14.5); Red Blood Cell (RBC) Count 2.45 10x6/uL (4.32-5.72); White Blood Cell (WBC) Count 16.3 10x3/uL (3.5-10.5)
[2020-12-17] MEDS: Enoxaparin Sodium 40 MG/0.4 ML SYRINGE SC SCH (08:22)
[2020-12-17] MEDS: Spironolactone 25 MG TAB PO SCH (08:22)
[2020-12-17] MEDS: Famotidine/PF 20 mg/2ml Vial SLOW IVP SCH ×2 (08:23→21:21)
[2020-12-17] MEDS ORDERED: Furosemide 40 MG/4 ML VIAL SLOW IVP SCH (09:00)
[2020-12-17] MEDS: Vancomycin HCl 1 GM in Sodium Chloride 0.9% 250 ML 250 ML IVPB SCH (15:40)
[2020-12-17 20:12] LABS: HIV (1/2) Antibody/Antigen Non-Reactive (NonReactive); HIV 1/2 INDEX 0.06 S/CO (<1.00); Syphilis Antibody Nonreactive (Nonreactive); Syphilis Antibody Index 0.07 S/CO (<1.00 Non-Reactive)
[2020-12-17] MEDS: cefTRIAXone\\ROCEPHIN 2 GM in Sodium Chloride 0.9% 100 ML IVPB SCH (21:21)
[2020-12-17] MEDS: Ampicillin 2 GM in Sodium Chloride 0.9% 100 ML IVPB SCH (21:43)
[2020-12-18] MEDS: Ampicillin 2 GM in Sodium Chloride 0.9% 100 ML IVPB SCH ×6 (00:37→22:19)
[2020-12-18 06:15] LABS: Albumin 2.5 g/dL (3.4-4.8); Anion Gap 14 mmol/L (10-20); BUN (Urea Nitrogen) 22 mg/dL (8.4-25.7); BUN/Creatinine Ratio 26.83; Calc. Creatinine Clearance 97 mL/min (70-130); Carbon Dioxide 19 mmol/L (23-31); Chloride 116 mmol/L (98-107); Glucose 120 mg/dL (80-115); Magnesium 1.9 mg/dL (1.6-2.6); Phosphorus 3.7 mg/dL (2.3-4.7); Potassium 3.4 mmol/L (3.5-5.1); Sodium 146 mmol/L (136-145)
[2020-12-18 07:18] LABS: Vancomycin, Trough 20.7 ug/mL
[2020-12-18] MEDS: Famotidine/PF 20 mg/2ml Vial SLOW IVP SCH ×2 (09:17→21:19)
[2020-12-18] MEDS: Vancomycin HCl 1 GM in Sodium Chloride 0.9% 250 ML 250 ML IVPB SCH (09:17)
[2020-12-18] MEDS: Enoxaparin Sodium 40 MG/0.4 ML SYRINGE SC SCH (10:08)
[2020-12-18] MEDS: Spironolactone 25 MG TAB PO SCH (10:08)
[2020-12-18] MEDS: Torsemide 20 MG TAB PO SCH (10:08)
[2020-12-18] MEDS: Sodium Bicarbonate Tab 325 MG TAB PER TUBE SCH ×2 (12:08→21:19)
[2020-12-18] MEDS: cefTRIAXone\\ROCEPHIN 2 GM in Sodium Chloride 0.9% 100 ML IVPB SCH ×2 (12:09→21:18)
[2020-12-18] MEDS ORDERED: Lidocaine 1% PF 5 ML VIAL ONE (12:35)
[2020-12-18] MEDS ORDERED: Sodium Bicarbonate 2.5 MEQ/5 ML VIAL ONE (12:35)
[2020-12-18 13:29] LABS: Actual Bicarbonate (HCO3a) 20.8 mEq/L (22-28); Base Excess (BEa) -2.8 mEq/L (-2.0 to +3.0); CO2 Tension 30.7 mmHg (35.0-45.0); Calcium, Ionized (arterial) 1.11 mmol/L (1.12-1.30); Carboxyhemoglobin (COHb) 0.7 gm% (0.0-3.0); Hemoglobin (Hb) 7.4 g/dL (14.0-18.0); O2 Tension (PaO2), arterial 107.8 mmHg (> 80.0); Puncture Site LBA; pH, Arterial 7.45 (7.35-7.45)
[2020-12-18 13:31] LABS: ALV-art Gradient 53.465 mmHg (0-20)
[2020-12-18] MEDS: Morphine 2 MG/ML VIAL SLOW IVP PRN (16:06)
[2020-12-18 16:17] LABS: CSF, Glucose 60 mg/dl (40-70); CSF, Protein 42 mg/dL (15-40)
[2020-12-18 17:15] LABS: CSF Source CSF; Clarity Hazy (Clear); Tube # 4
[2020-12-18 17:16] LABS: CSF RBC Count - Manual 884 /cu.mm (None Seen); CSF WBC/NonHematics Count-Man 4 /cu.mm (0-5)
[2020-12-19] MEDS: Ampicillin 2 GM in Sodium Chloride 0.9% 100 ML IVPB SCH ×6 (01:16→20:41)
[2020-12-19 01:20] LABS: Vancomycin, Trough 18.6 ug/mL
[2020-12-19] MEDS: Vancomycin HCl 1 GM in Sodium Chloride 0.9% 250 ML 250 ML IVPB SCH ×2 (02:03→21:09)
[2020-12-19] MEDS: Acetaminophen 650 MG Suppository PR PRN (02:03)
[2020-12-19] MEDS ORDERED: traMADol HCl 50 MG TAB PER TUBE SCH ×3 (04:00→18:00)
[2020-12-19 07:47] LABS: Hemoglobin 7.4 g/dL (13.5-17.5); Mean Corpuscular HGB CONC 32.3 g/dL (32.0-36.0); Mean Corpuscular Hemoglobin 32.6 pg (27.0-33.0); Mean Corpuscular Volume 100.9 fl (81.2-95.1); Mean Platelet Volume 11.3 fl (7.4-10.4); Platelet Count 142 10x3/uL (150-450); RBC Distribution Width 17.4 % (11.5-14.5); Red Blood Cell (RBC) Count 2.27 10x6/uL (4.32-5.72); White Blood Cell (WBC) Count 11.7 10x3/uL (3.5-10.5)
[2020-12-19 07:52] LABS: ALT (SGPT) 75 U/L (8-55); AST (SGOT) 54 U/L (5-34); Albumin 2.2 g/dL (3.4-4.8); Alkaline Phosphatase 91 U/L (40-110); Anion Gap 10 mmol/L (10-20); BUN (Urea Nitrogen) 20 mg/dL (8.4-25.7); Bilirubin, Total 1.2 mg/dL (0.2-1.2); Calc. Creatinine Clearance 104 mL/min (70-130); Calcium 7.8 mg/dL (7.8-10.44); Carbon Dioxide 20 mmol/L (23-31); Chloride 121 mmol/L (98-107); Globulin 3.3 g/dL (2.4-3.5); Glucose 114 mg/dL (80-115); Protein, Total 5.5 g/dL (5.8-8.1); Sodium 148 mmol/L (136-145)
[2020-12-19] MEDS: cefTRIAXone\\ROCEPHIN 2 GM in Sodium Chloride 0.9% 100 ML IVPB SCH ×2 (10:43→21:10)
[2020-12-19] MEDS: Potassium Bicarbonate/Cit Ac 20 MEQ TAB PO SCH ×3 (11:21→23:14)
[2020-12-19] MEDS: Torsemide 20 MG TAB PO SCH (11:21)
[2020-12-19] MEDS: Spironolactone 25 MG TAB PO SCH (11:23)
[2020-12-19] MEDS: Famotidine/PF 20 mg/2ml Vial SLOW IVP SCH ×2 (11:23→21:10)
[2020-12-19] MEDS: Enoxaparin Sodium 40 MG/0.4 ML SYRINGE SC SCH (11:23)
[2020-12-19] MEDS: Sodium Bicarbonate Tab 325 MG TAB PER TUBE SCH ×2 (11:23→21:10)
[2020-12-19] MEDS: traMADol HCl 50 MG TAB PER TUBE PRN ×2 (16:55→23:21)
[2020-12-19] MEDS ORDERED: Ampicillin 2 GM VIAL ONE (20:39)
[2020-12-19] MEDS: Acetaminophen 650 MG/20.3 ML UDCUP PER TUBE PRN (21:14)
[2020-12-20] MEDS: traMADol HCl 50 MG TAB PER TUBE PRN (00:38)
[2020-12-20] MEDS: Ampicillin 2 GM in Sodium Chloride 0.9% 100 ML IVPB SCH ×7 (02:02→23:07)
[2020-12-20] MEDS: Potassium Bicarbonate/Cit Ac 20 MEQ TAB PO SCH ×5 (05:06→20:39)
[2020-12-20 05:45] LABS: #Basophils 0.1 10x3/uL (0.0-0.2); #Monocytes 0.9 10x3/uL (0.0-1.1); #Neutrophils 6.5 10x3/uL (1.5-8.4); %Basophils 0.5 % (0.0-2.0); %Eosinophils 10.4 % (0.0-6.0); %Lymphocytes 13.9 % (18.0-47.0); %Monocytes 8.8 % (0.0-10.0); %Neutrophils 65.8 % (40.0-75.0); Hemoglobin 7.2 g/dL (13.5-17.5); Mean Corpuscular HGB CONC 31.7 g/dL (32.0-36.0); Mean Corpuscular Hemoglobin 32.1 pg (27.0-33.0); Mean Corpuscular Volume 101.3 fl (81.2-95.1); Mean Platelet Volume 12.2 fl (7.4-10.4); Platelet Count 151 10x3/uL (150-450); RBC Distribution Width 17.5 % (11.5-14.5); Red Blood Cell (RBC) Count 2.24 10x6/uL (4.32-5.72); White Blood Cell (WBC) Count 9.9 10x3/uL (3.5-10.5)
[2020-12-20 06:07] LABS: ALT (SGPT) 74 U/L (8-55); AST (SGOT) 55 U/L (5-34); Albumin 2.3 g/dL (3.4-4.8); Alkaline Phosphatase 94 U/L (40-110); Anion Gap 12 mmol/L (10-20); BUN (Urea Nitrogen) 17 mg/dL (8.4-25.7); Bilirubin, Total 1.1 mg/dL (0.2-1.2); CK (CPK) 245 U/L (30-200); Calc. Creatinine Clearance 98 mL/min (70-130); Calcium 7.9 mg/dL (7.8-10.44); Carbon Dioxide 21 mmol/L (23-31); Chloride 117 mmol/L (98-107); Globulin 3.5 g/dL (2.4-3.5); Glucose 106 mg/dL (80-115); Potassium 3.2 mmol/L (3.5-5.1); Protein, Total 5.8 g/dL (5.8-8.1); Sodium 147 mmol/L (136-145)
[2020-12-20] MEDS: Acetaminophen 650 MG/20.3 ML UDCUP PER TUBE PRN ×2 (06:18→23:45)
[2020-12-20] MEDS: Spironolactone 25 MG TAB PO SCH (08:19)
[2020-12-20] MEDS: Torsemide 20 MG TAB PO SCH (08:19)
[2020-12-20] MEDS: Sodium Bicarbonate Tab 325 MG TAB PER TUBE SCH ×2 (08:19→20:44)
[2020-12-20] MEDS: cefTRIAXone\\ROCEPHIN 2 GM in Sodium Chloride 0.9% 100 ML IVPB SCH ×2 (08:20→20:40)
[2020-12-20] MEDS: Famotidine/PF 20 mg/2ml Vial SLOW IVP SCH ×2 (08:20→20:39)
[2020-12-20] MEDS: Enoxaparin Sodium 40 MG/0.4 ML SYRINGE SC SCH (08:46)
[2020-12-20 10:29] LABS: Magnesium 1.6 mg/dL (1.6-2.6); Phosphorus 3.4 mg/dL (2.3-4.7)
[2020-12-20 10:30] LABS: Iron 24 ug/dL (65-175); Iron Binding Capacity, Total 91 mcg/dL (261-462)
[2020-12-20] MEDS ORDERED: Potassium Phosphate 15 MMOL in Sodium Chloride 0.9% 250 ML 250 ML IVPB SCH (11:30)
[2020-12-20] MEDS ORDERED: Vancomycin HCl 1 GM in Sodium Chloride 0.9% 250 ML 250 ML IVPB SCH (17:00)
[2020-12-20] MEDS: Vancomycin HCl 1 GM in Sodium Chloride 0.9% 250 ML 250 ML IVPB SCH (17:31)
[2020-12-21] MEDS: Ampicillin 2 GM in Sodium Chloride 0.9% 100 ML IVPB SCH ×6 (01:25→21:58)
[2020-12-21] MEDS: traMADol HCl 50 MG TAB PER TUBE PRN (05:21)
[2020-12-21 05:25] LABS: #Eosinphils 0.8 10x3/uL (0.0-0.5); #Neutrophils 6.2 10x3/uL (1.5-8.4); %Basophils 0.3 % (0.0-2.0); %Eosinophils 8.6 % (0.0-6.0); %Lymphocytes 16.8 % (18.0-47.0); %Monocytes 10.2 % (0.0-10.0); %Neutrophils 63.7 % (40.0-75.0); Mean Corpuscular HGB CONC 32.4 g/dL (32.0-36.0); Mean Corpuscular Hemoglobin 32.1 pg (27.0-33.0); Mean Corpuscular Volume 99.1 fl (81.2-95.1); Mean Platelet Volume 12.2 fl (7.4-10.4); Platelet Count 162 10x3/uL (150-450); Red Blood Cell (RBC) Count 2.18 10x6/uL (4.32-5.72); White Blood Cell (WBC) Count 9.7 10x3/uL (3.5-10.5)
[2020-12-21 05:34] LABS: ALT (SGPT) 72 U/L (8-55); AST (SGOT) 53 U/L (5-34); Albumin 2.4 g/dL (3.4-4.8); Alkaline Phosphatase 104 U/L (40-110); Anion Gap 12 mmol/L (10-20); BUN (Urea Nitrogen) 13 mg/dL (8.4-25.7); Bilirubin, Total 1.1 mg/dL (0.2-1.2); Calc. Creatinine Clearance 91 mL/min (70-130); Calcium 7.9 mg/dL (7.8-10.44); Carbon Dioxide 22 mmol/L (23-31); Chloride 116 mmol/L (98-107); Globulin 3.5 g/dL (2.4-3.5); Glucose 110 mg/dL (80-115); Potassium 4.3 mmol/L (3.5-5.1); Protein, Total 5.9 g/dL (5.8-8.1); Sodium 146 mmol/L (136-145)
[2020-12-21] MEDS: cefTRIAXone\\ROCEPHIN 2 GM in Sodium Chloride 0.9% 100 ML IVPB SCH ×2 (08:52→20:15)
[2020-12-21] MEDS: Enoxaparin Sodium 40 MG/0.4 ML SYRINGE SC SCH (08:52)
[2020-12-21] MEDS: Famotidine/PF 20 mg/2ml Vial SLOW IVP SCH ×2 (08:53→20:15)
[2020-12-21] MEDS: Spironolactone 25 MG TAB PO SCH (08:53)
[2020-12-21] MEDS: Morphine 2 MG/ML VIAL SLOW IVP PRN (08:53)
[2020-12-21] MEDS: Torsemide 20 MG TAB PO SCH (08:54)
[2020-12-21] MEDS: Sodium Bicarbonate Tab 325 MG TAB PER TUBE SCH ×2 (08:54→20:26)
[2020-12-21] MEDS: chlordiazePOXIDE HCl 5 MG CAP PO SCH ×2 (14:30→20:26)
[2020-12-21] MEDS: Vancomycin HCl 500 MG in Sodium Chloride 0.9% 100 ML IVPB SCH (14:30)
[2020-12-21] MEDS ORDERED: Sodium Chloride 0.9% 100 ML ONE (17:22)
[2020-12-21] MEDS ORDERED: Acetaminophen 325 MG TAB PO PRN (18:02)
[2020-12-21] MEDS: Ketorolac Tromethamine 30 MG/ML VIAL IVP PRN (20:16)
[2020-12-21] MEDS ORDERED: Lorazepam 2 MG/ML VIAL SLOW IVP SCH (21:45)
[2020-12-22] MEDS: Acetaminophen 650 MG/20.3 ML UDCUP PER TUBE PRN ×2 (00:40→22:48)
[2020-12-22] MEDS: Ketorolac Tromethamine 30 MG/ML VIAL IVP PRN ×3 (01:40→17:01)
[2020-12-22] MEDS: Ampicillin 2 GM in Sodium Chloride 0.9% 100 ML IVPB SCH ×6 (01:40→21:14)
[2020-12-22] MEDS: Vancomycin HCl 500 MG in Sodium Chloride 0.9% 100 ML IVPB SCH ×2 (03:24→21:16)
[2020-12-22 06:38] LABS: #Eosinphils 0.9 10x3/uL (0.0-0.5); #Monocytes 0.9 10x3/uL (0.0-1.1); #Neutrophils 6.4 10x3/uL (1.5-8.4); %Basophils 0.4 % (0.0-2.0); %Eosinophils 9.2 % (0.0-6.0); %Lymphocytes 16.6 % (18.0-47.0); %Monocytes 9.4 % (0.0-10.0); Hemoglobin 7.1 g/dL (13.5-17.5); Mean Corpuscular HGB CONC 32.6 g/dL (32.0-36.0); Mean Corpuscular Hemoglobin 32.4 pg (27.0-33.0); Mean Corpuscular Volume 99.5 fl (81.2-95.1); Mean Platelet Volume 11.8 fl (7.4-10.4); Platelet Count 162 10x3/uL (150-450); RBC Distribution Width 18.6 % (11.5-14.5); Red Blood Cell (RBC) Count 2.19 10x6/uL (4.32-5.72)
[2020-12-22 07:04] LABS: ALT (SGPT) 63 U/L (8-55); AST (SGOT) 48 U/L (5-34); Albumin 2.4 g/dL (3.4-4.8); Alkaline Phosphatase 109 U/L (40-110); Anion Gap 14 mmol/L (10-20); BUN (Urea Nitrogen) 15 mg/dL (8.4-25.7); Bilirubin, Total 1.1 mg/dL (0.2-1.2); CK (CPK) 305 U/L (30-200); Calcium 7.9 mg/dL (7.8-10.44); Carbon Dioxide 21 mmol/L (23-31); Chloride 112 mmol/L (98-107); Globulin 3.7 g/dL (2.4-3.5); Glucose 102 mg/dL (80-115); Protein, Total 6.1 g/dL (5.8-8.1); Sodium 143 mmol/L (136-145)
[2020-12-22 07:13] LABS: Calc. Creatinine Clearance 82 mL/min (70-130)
[2020-12-22] MEDS: Vancomycin HCl 1 GM in Sodium Chloride 0.9% 250 ML 250 ML IVPB SCH (08:09)
[2020-12-22] MEDS: cefTRIAXone\\ROCEPHIN 2 GM in Sodium Chloride 0.9% 100 ML IVPB SCH ×2 (09:02→22:47)
[2020-12-22] MEDS: Torsemide 20 MG TAB PO SCH (09:03)
[2020-12-22] MEDS: Sodium Bicarbonate Tab 325 MG TAB PER TUBE SCH (09:03)
[2020-12-22] MEDS: chlordiazePOXIDE HCl 5 MG CAP PO SCH ×3 (09:03→22:48)
[2020-12-22] MEDS: Famotidine/PF 20 mg/2ml Vial SLOW IVP SCH ×2 (09:03→21:17)
[2020-12-22] MEDS: Spironolactone 25 MG TAB PO SCH (09:03)
[2020-12-22] MEDS: Enoxaparin Sodium 40 MG/0.4 ML SYRINGE SC SCH (09:45)
[2020-12-22 14:30] LABS: Vancomycin, Trough 23.9 ug/mL
[2020-12-22] MEDS ORDERED: Ampicillin 2 GM VIAL ONE (16:58)
[2020-12-23] MEDS: Ampicillin 2 GM in Sodium Chloride 0.9% 100 ML IVPB SCH ×6 (00:54→22:10)
[2020-12-23] MEDS: Ketorolac Tromethamine 30 MG/ML VIAL IVP PRN ×4 (01:06→22:53)
[2020-12-23 06:36] LABS: #Basophils 0.1 10x3/uL (0.0-0.2); #Eosinphils 0.8 10x3/uL (0.0-0.5); #Monocytes 1.3 10x3/uL (0.0-1.1); #Neutrophils 8.5 10x3/uL (1.5-8.4); %Basophils 0.5 % (0.0-2.0); %Eosinophils 6.2 % (0.0-6.0); %Lymphocytes 14.8 % (18.0-47.0); %Monocytes 10.6 % (0.0-10.0); %Neutrophils 67.2 % (40.0-75.0); Hemoglobin 7.5 g/dL (13.5-17.5); Mean Corpuscular HGB CONC 32.1 g/dL (32.0-36.0); Mean Corpuscular Hemoglobin 31.8 pg (27.0-33.0); Mean Corpuscular Volume 99.2 fl (81.2-95.1); Mean Platelet Volume 11.9 fl (7.4-10.4); Platelet Count 166 10x3/uL (150-450); RBC Distribution Width 18.8 % (11.5-14.5); Red Blood Cell (RBC) Count 2.36 10x6/uL (4.32-5.72); White Blood Cell (WBC) Count 12.6 10x3/uL (3.5-10.5)
[2020-12-23 07:44] LABS: Anion Gap 15 mmol/L (10-20); BUN (Urea Nitrogen) 16 mg/dL (8.4-25.7); Calc. Creatinine Clearance 70 mL/min (70-130); Calcium 7.9 mg/dL (7.8-10.44); Carbon Dioxide 17 mmol/L (23-31); Chloride 114 mmol/L (98-107); Glucose 97 mg/dL (80-115); Potassium 4.1 mmol/L (3.5-5.1); Sodium 142 mmol/L (136-145)
[2020-12-23] MEDS ORDERED: Iron, Sodium Ferric Gluconate 250 MG in Sodium Chloride 0.9% 100 ML IVPB SCH (09:00)
[2020-12-23] MEDS: cefTRIAXone\\ROCEPHIN 2 GM in Sodium Chloride 0.9% 100 ML IVPB SCH ×2 (10:01→20:27)
[2020-12-23] MEDS: Famotidine/PF 20 mg/2ml Vial SLOW IVP SCH ×2 (10:05→20:29)
[2020-12-23] MEDS: Sodium Bicarbonate Tab 325 MG TAB PER TUBE SCH ×2 (10:05→20:29)
[2020-12-23] MEDS: Spironolactone 25 MG TAB PO SCH (10:05)
[2020-12-23] MEDS: chlordiazePOXIDE HCl 5 MG CAP PO SCH ×3 (10:06→20:30)
[2020-12-23] MEDS: Torsemide 20 MG TAB PO SCH (10:33)
[2020-12-23] MEDS: Enoxaparin Sodium 40 MG/0.4 ML SYRINGE SC SCH (12:42)
[2020-12-23] MEDS: Acetaminophen 650 MG/20.3 ML UDCUP PER TUBE PRN ×2 (13:50→20:28)
[2020-12-23] MEDS: Vancomycin HCl 500 MG in Sodium Chloride 0.9% 100 ML IVPB SCH (15:38)
[2020-12-24] MEDS: Ampicillin 2 GM in Sodium Chloride 0.9% 100 ML IVPB SCH ×7 (01:27→23:42)
[2020-12-24 05:17] LABS: #Eosinphils 0.9 10x3/uL (0.0-0.5); #Monocytes 1.4 10x3/uL (0.0-1.1); #Neutrophils 8.4 10x3/uL (1.5-8.4); %Basophils 0.2 % (0.0-2.0); %Eosinophils 7.5 % (0.0-6.0); %Lymphocytes 11.5 % (18.0-47.0); %Monocytes 11.2 % (0.0-10.0); Hemoglobin 7.6 g/dL (13.5-17.5); Mean Corpuscular HGB CONC 32.6 g/dL (32.0-36.0); Mean Corpuscular Hemoglobin 32.3 pg (27.0-33.0); Mean Corpuscular Volume 99.1 fl (81.2-95.1); Platelet Count 169 10x3/uL (150-450); RBC Distribution Width 18.9 % (11.5-14.5); Red Blood Cell (RBC) Count 2.35 10x6/uL (4.32-5.72); White Blood Cell (WBC) Count 12.2 10x3/uL (3.5-10.5)
[2020-12-24 05:29] LABS: Anion Gap 14 mmol/L (10-20); BUN (Urea Nitrogen) 16 mg/dL (8.4-25.7); Calc. Creatinine Clearance 70 mL/min (70-130); Carbon Dioxide 20 mmol/L (23-31); Chloride 114 mmol/L (98-107); Glucose 115 mg/dL (80-115); Sodium 144 mmol/L (136-145)
[2020-12-24] MEDS: cefTRIAXone\\ROCEPHIN 2 GM in Sodium Chloride 0.9% 100 ML IVPB SCH ×2 (07:45→22:35)
[2020-12-24 08:37] LABS: Vancomycin, Trough 18.5 ug/mL
[2020-12-24] MEDS: Famotidine/PF 20 mg/2ml Vial SLOW IVP SCH ×2 (09:45→22:34)
[2020-12-24] MEDS: Ketorolac Tromethamine 30 MG/ML VIAL IVP PRN (09:45)
[2020-12-24] MEDS: Vancomycin HCl 500 MG in Sodium Chloride 0.9% 100 ML IVPB SCH (09:45)
[2020-12-24] MEDS: Torsemide 20 MG TAB PO SCH (09:46)
[2020-12-24] MEDS: Spironolactone 25 MG TAB PO SCH (09:46)
[2020-12-24] MEDS: chlordiazePOXIDE HCl 5 MG CAP PO SCH ×2 (09:46→14:52)
[2020-12-24] MEDS: Sodium Bicarbonate Tab 325 MG TAB PER TUBE SCH ×2 (09:46→22:34)
[2020-12-24] MEDS: Enoxaparin Sodium 40 MG/0.4 ML SYRINGE SC SCH (09:47)
[2020-12-24] MEDS: Metamucil PACK PO SCH (09:47)
[2020-12-24] MEDS: Iron, Sodium Ferric Gluconate 250 MG in Sodium Chloride 0.9% 100 ML IVPB SCH (11:00)
[2020-12-25] MEDS: Ampicillin 2 GM in Sodium Chloride 0.9% 100 ML IVPB SCH ×3 (02:43→10:34)
[2020-12-25] MEDS: Vancomycin HCl 500 MG in Sodium Chloride 0.9% 100 ML IVPB SCH (03:55)
[2020-12-25 06:40] LABS: #Eosinphils 0.7 10x3/uL (0.0-0.5); #Monocytes 1.5 10x3/uL (0.0-1.1); #Neutrophils 7.6 10x3/uL (1.5-8.4); %Basophils 0.3 % (0.0-2.0); %Eosinophils 5.9 % (0.0-6.0); %Lymphocytes 15.1 % (18.0-47.0); %Monocytes 12.6 % (0.0-10.0); %Neutrophils 65.3 % (40.0-75.0); Hemoglobin 7.2 g/dL (13.5-17.5); Mean Corpuscular HGB CONC 33.3 g/dL (32.0-36.0); Mean Corpuscular Hemoglobin 32.1 pg (27.0-33.0); Mean Corpuscular Volume 96.4 fl (81.2-95.1); Mean Platelet Volume 11.3 fl (7.4-10.4); Platelet Count 174 10x3/uL (150-450); RBC Distribution Width 18.7 % (11.5-14.5); Red Blood Cell (RBC) Count 2.24 10x6/uL (4.32-5.72); White Blood Cell (WBC) Count 11.6 10x3/uL (3.5-10.5)
[2020-12-25 06:56] LABS: Anion Gap 15 mmol/L (10-20); BUN (Urea Nitrogen) 14 mg/dL (8.4-25.7); Calc. Creatinine Clearance 78 mL/min (70-130); Calcium 7.5 mg/dL (7.8-10.44); Carbon Dioxide 17 mmol/L (23-31); Chloride 114 mmol/L (98-107); Glucose 102 mg/dL (80-115); Potassium 3.6 mmol/L (3.5-5.1); Sodium 142 mmol/L (136-145)
[2020-12-25] MEDS ORDERED: Sodium Chloride 0.9% 100 ML ONE (09:14)
[2020-12-25] MEDS: Torsemide 20 MG TAB PO SCH (10:34)
[2020-12-25] MEDS: Famotidine/PF 20 mg/2ml Vial SLOW IVP SCH ×2 (10:34→22:07)
[2020-12-25] MEDS: Enoxaparin Sodium 40 MG/0.4 ML SYRINGE SC SCH (10:34)
[2020-12-25] MEDS: Sodium Bicarbonate Tab 325 MG TAB PER TUBE SCH ×3 (10:35→22:07)
[2020-12-25] MEDS: Spironolactone 25 MG TAB PO SCH (10:35)
[2020-12-25] MEDS: Metamucil PACK PO SCH (10:36)
[2020-12-25] MEDS: Acetaminophen 650 MG/20.3 ML UDCUP PER TUBE PRN (10:37)
[2020-12-25] MEDS: cefTRIAXone\\ROCEPHIN 2 GM in Sodium Chloride 0.9% 100 ML IVPB SCH (11:11)
[2020-12-25] MEDS ORDERED: Piperacillin/Tazobactam 3.375 GM in Sodium Chloride 0.9% 100 ML IVPB SCH (14:00)
[2020-12-25] MEDS: Iron, Sodium Ferric Gluconate 250 MG in Sodium Chloride 0.9% 100 ML IVPB SCH (16:00)
[2020-12-25] MEDS: Piperacillin/Tazobactam 3.375 GM in Sodium Chloride 0.9% 100 ML IVPB SCH (18:08)
[2020-12-25 22:15] LABS: SARS-CoV-2 IgG Ab Non-Reactive (NonReactive); SARS-CoV-2 IgG Index 0.76 S/CO (< 1.40)
[2020-12-26] MEDS: Piperacillin/Tazobactam 3.375 GM in Sodium Chloride 0.9% 100 ML IVPB SCH ×3 (02:10→18:20)
[2020-12-26 06:12] LABS: #Basophils 0.1 10x3/uL (0.0-0.2); #Eosinphils 0.7 10x3/uL (0.0-0.5); #Monocytes 1.4 10x3/uL (0.0-1.1); #Neutrophils 8.5 10x3/uL (1.5-8.4); %Basophils 0.6 % (0.0-2.0); %Eosinophils 5.7 % (0.0-6.0); %Lymphocytes 15.1 % (18.0-47.0); %Monocytes 11.1 % (0.0-10.0); %Neutrophils 66.8 % (40.0-75.0); Hemoglobin 7.8 g/dL (13.5-17.5); Mean Corpuscular HGB CONC 32.6 g/dL (32.0-36.0); Mean Platelet Volume 11.3 fl (7.4-10.4); Platelet Count 185 10x3/uL (150-450); RBC Distribution Width 18.9 % (11.5-14.5); Red Blood Cell (RBC) Count 2.44 10x6/uL (4.32-5.72); White Blood Cell (WBC) Count 12.8 10x3/uL (3.5-10.5)
[2020-12-26 06:23] LABS: Anion Gap 14 mmol/L (10-20); BUN (Urea Nitrogen) 12 mg/dL (8.4-25.7); Calc. Creatinine Clearance 83 mL/min (70-130); Calcium 7.8 mg/dL (7.8-10.44); Carbon Dioxide 18 mmol/L (23-31); Chloride 111 mmol/L (98-107); Glucose 92 mg/dL (80-115); Potassium 3.8 mmol/L (3.5-5.1); Sodium 139 mmol/L (136-145)
[2020-12-26] MEDS: Enoxaparin Sodium 40 MG/0.4 ML SYRINGE SC SCH (10:38)
[2020-12-26] MEDS: Sodium Bicarbonate Tab 325 MG TAB PER TUBE SCH ×3 (10:38→20:48)
[2020-12-26] MEDS: Famotidine/PF 20 mg/2ml Vial SLOW IVP SCH ×2 (10:39→20:48)
[2020-12-26] MEDS: Spironolactone 25 MG TAB PO SCH (10:39)
[2020-12-26] MEDS: Metamucil PACK PO SCH (10:39)
[2020-12-26] MEDS: Torsemide 20 MG TAB PO SCH (10:40)
[2020-12-26 13:28] LABS: SARS-CoV-2 NAA Rapid Test Not Detected (NotDetected)
[2020-12-27] MEDS: Piperacillin/Tazobactam 3.375 GM in Sodium Chloride 0.9% 100 ML IVPB SCH ×3 (02:06→17:21)
[2020-12-27 04:54] LABS: #Basophils 0.1 10x3/uL (0.0-0.2); #Eosinphils 0.8 10x3/uL (0.0-0.5); #Monocytes 2.3 10x3/uL (0.0-1.1); #Neutrophils 10.6 10x3/uL (1.5-8.4); %Basophils 0.4 % (0.0-2.0); %Lymphocytes 13.4 % (18.0-47.0); %Monocytes 14.5 % (0.0-10.0); %Neutrophils 66.3 % (40.0-75.0); Hemoglobin 8.5 g/dL (13.5-17.5); Mean Corpuscular Hemoglobin 32.1 pg (27.0-33.0); Mean Corpuscular Volume 100.4 fl (81.2-95.1); Mean Platelet Volume 11.5 fl (7.4-10.4); Platelet Count 172 10x3/uL (150-450); Red Blood Cell (RBC) Count 2.65 10x6/uL (4.32-5.72)
[2020-12-27 05:03] LABS: Anion Gap 15 mmol/L (10-20); BUN (Urea Nitrogen) 12 mg/dL (8.4-25.7); Calc. Creatinine Clearance 93 mL/min (70-130); Carbon Dioxide 15 mmol/L (23-31); Chloride 110 mmol/L (98-107); Glucose 83 mg/dL (80-115); Potassium 4.1 mmol/L (3.5-5.1); Sodium 136 mmol/L (136-145)
[2020-12-27] MEDS: Sodium Bicarbonate Tab 325 MG TAB PER TUBE SCH ×3 (09:51→21:31)
[2020-12-27] MEDS: Metamucil PACK PO SCH (09:51)
[2020-12-27] MEDS: Enoxaparin Sodium 40 MG/0.4 ML SYRINGE SC SCH (09:51)
[2020-12-27] MEDS: Famotidine/PF 20 mg/2ml Vial SLOW IVP SCH ×2 (09:51→21:31)
[2020-12-27] MEDS: Spironolactone 25 MG TAB PO SCH (09:51)
[2020-12-27] MEDS: Torsemide 20 MG TAB PO SCH (09:52)
[2020-12-27] MEDS: Thiamine HCl 200 MG/2 ML VIAL SLOW IVP SCH (19:11)
[2020-12-28] MEDS: Piperacillin/Tazobactam 3.375 GM in Sodium Chloride 0.9% 100 ML IVPB SCH ×3 (02:10→17:32)
[2020-12-28 05:22] LABS: #Basophils 0.1 10x3/uL (0.0-0.2); #Eosinphils 0.8 10x3/uL (0.0-0.5); #Monocytes 1.8 10x3/uL (0.0-1.1); #Neutrophils 8.8 10x3/uL (1.5-8.4); %Basophils 0.5 % (0.0-2.0); %Eosinophils 5.7 % (0.0-6.0); %Lymphocytes 14.3 % (18.0-47.0); %Monocytes 13.2 % (0.0-10.0); %Neutrophils 65.6 % (40.0-75.0); Hemoglobin 7.8 g/dL (13.5-17.5); Mean Corpuscular HGB CONC 32.5 g/dL (32.0-36.0); Mean Corpuscular Volume 98.4 fl (81.2-95.1); Platelet Count 164 10x3/uL (150-450); RBC Distribution Width 18.9 % (11.5-14.5); Red Blood Cell (RBC) Count 2.44 10x6/uL (4.32-5.72); White Blood Cell (WBC) Count 13.5 10x3/uL (3.5-10.5)
[2020-12-28 05:34] LABS: Anion Gap 13 mmol/L (10-20); BUN (Urea Nitrogen) 11 mg/dL (8.4-25.7); Calc. Creatinine Clearance 95 mL/min (70-130); Calcium 7.8 mg/dL (7.8-10.44); Carbon Dioxide 18 mmol/L (23-31); Chloride 108 mmol/L (98-107); Glucose 96 mg/dL (80-115); Potassium 3.8 mmol/L (3.5-5.1); Sodium 135 mmol/L (136-145)
[2020-12-28 08:54] LABS: Lactic Acid 1.4 mmol/L (0.5-2.2)
[2020-12-28] MEDS: Famotidine/PF 20 mg/2ml Vial SLOW IVP SCH ×2 (09:04→22:47)
[2020-12-28] MEDS: Enoxaparin Sodium 40 MG/0.4 ML SYRINGE SC SCH (09:04)
[2020-12-28] MEDS: Spironolactone 25 MG TAB PO SCH (09:04)
[2020-12-28] MEDS: Sodium Bicarbonate Tab 325 MG TAB PER TUBE SCH ×3 (09:05→22:47)
[2020-12-28] MEDS: Metamucil PACK PO SCH (09:05)
[2020-12-28] MEDS: Torsemide 20 MG TAB PO SCH (09:05)
[2020-12-28] MEDS: Thiamine HCl 200 MG/2 ML VIAL SLOW IVP SCH (17:31)
[2020-12-29] MEDS: Piperacillin/Tazobactam 3.375 GM in Sodium Chloride 0.9% 100 ML IVPB SCH ×3 (03:46→17:11)
[2020-12-29 04:39] LABS: #Eosinphils 0.8 10x3/uL (0.0-0.5); #Monocytes 1.8 10x3/uL (0.0-1.1); #Neutrophils 8.9 10x3/uL (1.5-8.4); %Basophils 0.3 % (0.0-2.0); %Eosinophils 6.2 % (0.0-6.0); %Lymphocytes 13.4 % (18.0-47.0); %Monocytes 13.2 % (0.0-10.0); %Neutrophils 66.3 % (40.0-75.0); Hemoglobin 7.7 g/dL (13.5-17.5); Mean Corpuscular HGB CONC 33.2 g/dL (32.0-36.0); Mean Corpuscular Volume 99.6 fl (81.2-95.1); Mean Platelet Volume 10.5 fl (7.4-10.4); Platelet Count 173 10x3/uL (150-450); RBC Distribution Width 19.1 % (11.5-14.5); Red Blood Cell (RBC) Count 2.33 10x6/uL (4.32-5.72); White Blood Cell (WBC) Count 13.5 10x3/uL (3.5-10.5)
[2020-12-29 04:58] LABS: Anion Gap 15 mmol/L (10-20); BUN (Urea Nitrogen) 11 mg/dL (8.4-25.7); Calc. Creatinine Clearance 0 mL/min (70-130); Calcium 7.8 mg/dL (7.8-10.44); Carbon Dioxide 18 mmol/L (23-31); Chloride 106 mmol/L (98-107); Glucose 119 mg/dL (80-115); Potassium 3.5 mmol/L (3.5-5.1); Sodium 135 mmol/L (136-145)
[2020-12-29] MEDS: Famotidine/PF 20 mg/2ml Vial SLOW IVP SCH ×2 (08:57→22:10)
[2020-12-29] MEDS: Metamucil PACK PO SCH (08:58)
[2020-12-29] MEDS: Sodium Bicarbonate Tab 325 MG TAB PER TUBE SCH ×3 (08:58→22:10)
[2020-12-29] MEDS: Torsemide 20 MG TAB PO SCH (08:58)
[2020-12-29] MEDS: Spironolactone 25 MG TAB PO SCH (08:58)
[2020-12-29] MEDS: Enoxaparin Sodium 40 MG/0.4 ML SYRINGE SC SCH (09:00)
[2020-12-29] MEDS: Scopolamine 1.5 mg/72 hour Patch TD SCH (10:37)
[2020-12-29] MEDS: Thiamine HCl 200 MG/2 ML VIAL SLOW IVP SCH (17:11)
[2020-12-30] MEDS: Piperacillin/Tazobactam 3.375 GM in Sodium Chloride 0.9% 100 ML IVPB SCH ×3 (03:10→19:12)
[2020-12-30 05:44] LABS: ALT (SGPT) 31 U/L (8-55); AST (SGOT) 54 U/L (5-34); Albumin 2.2 g/dL (3.4-4.8); Alkaline Phosphatase 84 U/L (40-110); Anion Gap 13 mmol/L (10-20); BUN (Urea Nitrogen) 10 mg/dL (8.4-25.7); Bilirubin, Total 1.8 mg/dL (0.2-1.2); Calc. Creatinine Clearance 93 mL/min (70-130); Calcium 7.9 mg/dL (7.8-10.44); Carbon Dioxide 19 mmol/L (23-31); Chloride 106 mmol/L (98-107); Globulin 4.1 g/dL (2.4-3.5); Glucose 99 mg/dL (80-115); Potassium 3.5 mmol/L (3.5-5.1); Protein, Total 6.3 g/dL (5.8-8.1); Sodium 134 mmol/L (136-145)
[2020-12-30] MEDS: Sodium Bicarbonate Tab 325 MG TAB PER TUBE SCH ×3 (15:40→21:35)
[2020-12-30] MEDS: Metamucil PACK PO SCH (15:40)
[2020-12-30] MEDS: Famotidine/PF 20 mg/2ml Vial SLOW IVP SCH ×2 (15:41→21:20)
[2020-12-30] MEDS: Enoxaparin Sodium 40 MG/0.4 ML SYRINGE SC SCH (15:42)
[2020-12-30] MEDS: Spironolactone 25 MG TAB PO SCH (15:42)
[2020-12-30] MEDS: Thiamine HCl 200 MG/2 ML VIAL SLOW IVP SCH (19:12)
[2020-12-30] MEDS: Acetaminophen 650 MG/20.3 ML UDCUP PER TUBE PRN (21:36)
[2020-12-31] MEDS: Piperacillin/Tazobactam 3.375 GM in Sodium Chloride 0.9% 100 ML IVPB SCH ×3 (02:28→18:12)
[2020-12-31 08:30] LABS: #Basophils 0.1 10x3/uL (0.0-0.2); #Eosinphils 0.6 10x3/uL (0.0-0.5); #Monocytes 1.4 10x3/uL (0.0-1.1); #Neutrophils 10.1 10x3/uL (1.5-8.4); %Basophils 0.4 % (0.0-2.0); %Eosinophils 4.3 % (0.0-6.0); %Lymphocytes 10.3 % (18.0-47.0); %Monocytes 9.9 % (0.0-10.0); %Neutrophils 74.5 % (40.0-75.0); Hemoglobin 7.8 g/dL (13.5-17.5); Mean Corpuscular Hemoglobin 32.6 pg (27.0-33.0); Mean Corpuscular Volume 102.1 fl (81.2-95.1); Mean Platelet Volume 10.4 fl (7.4-10.4); Platelet Count 164 10x3/uL (150-450); RBC Distribution Width 19.4 % (11.5-14.5); Red Blood Cell (RBC) Count 2.39 10x6/uL (4.32-5.72); White Blood Cell (WBC) Count 13.6 10x3/uL (3.5-10.5)
[2020-12-31 08:46] LABS: Actual Bicarbonate (HCO3a) 18.4 mEq/L (22-28); Base Excess (BEa) -4.5 mEq/L (-2.0 to +3.0); CO2 Tension 26.6 mmHg (35.0-45.0); Calcium, Ionized (arterial) 1.22 mmol/L (1.12-1.30); Carboxyhemoglobin (COHb) 0.2 gm% (0.0-3.0); Hemoglobin (Hb) 9.4 g/dL (14.0-18.0); O2 Tension (PaO2), arterial 75.9 mmHg (> 80.0); Potassium - ABG Lab 3.7 mmol/L (3.70-5.30); Puncture Site LBA; pH, Arterial 7.46 (7.35-7.45)
[2020-12-31] MEDS ORDERED: Famotidine/PF 20 mg/2ml Vial ONE (08:55)
[2020-12-31 09:12] LABS: ALT (SGPT) 35 U/L (8-55); AST (SGOT) 58 U/L (5-34); Albumin 2.3 g/dL (3.4-4.8); Alkaline Phosphatase 93 U/L (40-110); Anion Gap 13 mmol/L (10-20); BUN (Urea Nitrogen) 11 mg/dL (8.4-25.7); Bilirubin, Total 1.7 mg/dL (0.2-1.2); Calc. Creatinine Clearance 91 mL/min (70-130); Calcium 8.1 mg/dL (7.8-10.44); Carbon Dioxide 20 mmol/L (23-31); Chloride 109 mmol/L (98-107); Globulin 4.5 g/dL (2.4-3.5); Glucose 120 mg/dL (80-115); Potassium 3.7 mmol/L (3.5-5.1); Protein, Total 6.8 g/dL (5.8-8.1); Sodium 138 mmol/L (136-145)
[2020-12-31] MEDS: Metamucil PACK PO SCH ×2 (09:14→12:32)
[2020-12-31] MEDS: Famotidine/PF 20 mg/2ml Vial SLOW IVP SCH ×3 (09:15→21:00)
[2020-12-31] MEDS: Enoxaparin Sodium 40 MG/0.4 ML SYRINGE SC SCH (09:15)
[2020-12-31] MEDS: Sodium Bicarbonate Tab 325 MG TAB PER TUBE SCH ×4 (09:15→20:59)
[2020-12-31] MEDS: Spironolactone 25 MG TAB PO SCH (18:12)
[2020-12-31] MEDS: Thiamine HCl 200 MG/2 ML VIAL SLOW IVP SCH (18:12)
[2020-12-31] MEDS: Acetaminophen 650 MG/20.3 ML UDCUP PER TUBE PRN (23:25)
[2021-01-01] MEDS: Piperacillin/Tazobactam 3.375 GM in Sodium Chloride 0.9% 100 ML IVPB SCH ×3 (02:32→17:44)
[2021-01-01 09:09] LABS: Anion Gap 11 mmol/L (10-20); BUN (Urea Nitrogen) 10 mg/dL (8.4-25.7); Calc. Creatinine Clearance 96 mL/min (70-130); Calcium 8.1 mg/dL (7.8-10.44); Carbon Dioxide 21 mmol/L (23-31); Chloride 110 mmol/L (98-107); Glucose 109 mg/dL (80-115); Potassium 3.5 mmol/L (3.5-5.1); Sodium 138 mmol/L (136-145)
[2021-01-01] MEDS: Scopolamine 1.5 mg/72 hour Patch TD SCH (09:26)
[2021-01-01] MEDS: Enoxaparin Sodium 40 MG/0.4 ML SYRINGE SC SCH (09:26)
[2021-01-01] MEDS: Sodium Bicarbonate Tab 325 MG TAB PER TUBE SCH ×3 (09:27→22:21)
[2021-01-01] MEDS: Spironolactone 25 MG TAB PO SCH (09:27)
[2021-01-01] MEDS: Famotidine/PF 20 mg/2ml Vial SLOW IVP SCH ×2 (09:27→22:21)
[2021-01-01] MEDS: Metamucil PACK PO SCH (09:27)
[2021-01-01] MEDS: Acetaminophen 650 MG/20.3 ML UDCUP PER TUBE PRN ×2 (09:29→17:44)
[2021-01-01] MEDS: Thiamine HCl 200 MG/2 ML VIAL SLOW IVP SCH (17:44)
[2021-01-02] MEDS: Piperacillin/Tazobactam 3.375 GM in Sodium Chloride 0.9% 100 ML IVPB SCH ×3 (01:33→18:40)
[2021-01-02] MEDS: Enoxaparin Sodium 40 MG/0.4 ML SYRINGE SC SCH (10:43)
[2021-01-02] MEDS: Spironolactone 25 MG TAB PO SCH (10:43)
[2021-01-02] MEDS: Famotidine/PF 20 mg/2ml Vial SLOW IVP SCH ×2 (10:43→23:06)
[2021-01-02] MEDS: Sodium Bicarbonate Tab 325 MG TAB PER TUBE SCH ×3 (10:43→23:06)
[2021-01-02] MEDS: Metamucil PACK PO SCH (10:43)
[2021-01-02] MEDS: Acetaminophen 650 MG/20.3 ML UDCUP PER TUBE PRN ×2 (10:44→18:40)
[2021-01-02] MEDS: Thiamine HCl 200 MG/2 ML VIAL SLOW IVP SCH (18:40)
[2021-01-03] MEDS: Piperacillin/Tazobactam 3.375 GM in Sodium Chloride 0.9% 100 ML IVPB SCH ×2 (02:05→10:43)
[2021-01-03] MEDS: Metamucil PACK PO SCH (10:44)
[2021-01-03] MEDS: Enoxaparin Sodium 40 MG/0.4 ML SYRINGE SC SCH (10:44)
[2021-01-03] MEDS: Spironolactone 25 MG TAB PO SCH (10:45)
[2021-01-03] MEDS: Sodium Bicarbonate Tab 325 MG TAB PER TUBE SCH (10:45)
[2021-01-03] MEDS: Famotidine/PF 20 mg/2ml Vial SLOW IVP SCH (10:45)
[2021-01-03 13:17] VITALS: BP 125/63; TEMP 99.4
== END 2021-01-03 13:11 | DRG 557 ==
LOC: CSHERS 10:56 → SUATTDRO 10:56 → CSHTELE 18:00 → CSHIMCU 12-08 00:42 → CSHTELE 12-12 15:27
PROVIDERS: ADMIT Family Medicine; ATTEND Internal Medicine
PROC: 0DH63UZ Insertion of Feeding Device into Stomach, Percutaneous Approach (ICD-10-PCS; principal; 2020-12-30)
DX: M62.82 Rhabdomyolysis (principal); J69.0 Pneumonitis due to inhalation of food and vomit; G93.41 Metabolic encephalopathy; E87.1 Hypo-osmolality and hyponatremia; N39.0 Urinary tract infection, site not specified; E78.5 Hyperlipidemia, unspecified; L89.159 Pressure ulcer of sacral region, unspecified stage; K70.9 Alcoholic liver disease, unspecified; F10.10 Alcohol abuse, uncomplicated; I10 Essential (primary) hypertension; R13.12 Dysphagia, oropharyngeal phase; D64.9 Anemia, unspecified; K70.11 Alcoholic hepatitis with ascites; K52.9 Noninfective gastroenteritis and colitis, unspecified; L89.309 Pressure ulcer of unspecified buttock, unspecified stage; Z20.822 Contact with and (suspected) exposure to COVID-19
CPT/HCPCS: 36415; 36416; 36600; 51701; 62270; 70450; 70551; 71045; 71275; 74018; 74177; 80048; 80053; 80069; 80074; 80202; 81003; 81015; 82105; 82140; 82533; 82550; 82553; 82607; 82728; 82746; 82805; 82945; 83516; 83540; 83550; 83605; 83690; 83735; 83880; 84100; 84145; 84157; 84425; 84443; 84484; 84550; 85025; 85027; 85379; 85610; 85730; 86038; 86140; 86225; 86612; 86635; 86698; 86769; 86780; 86850; 86900; 86901; 87040; 87070; 87086; 87205; 87324; 87389; 87449; 87635; 87899; 89051; 93005; 93010; 93970; 94760; 95816; 96365; 96367; 96375; J0290; J0295; J0456; J0696; J1120; J1650; J1885; J1940; J2060; J2270; J2543; J2916; J3370; J3411; J3475; J3480; J3490; J7042; J7050; J7070; J7120; P9047; S0028; U0002; U0003; U0005

== ENCOUNTER 2021-04-21 13:23 | Outpatient (CLI) | payer MEDICARE, MEDICAID ==
[2021-04-22 07:42] LABS: SARS-CoV-2 PCR by NAA Not Detected (NotDetected)
== END 2021-04-21 13:24 | disposition home or self-care (01) ==
LOC: CSHLAB 13:23
PROVIDERS: ATTEND Family Medicine
DX: Z20.822 Contact with and (suspected) exposure to COVID-19 (principal)
CPT/HCPCS: U0003; U0005